=== PATIENT | male | born 1955 | race Caucasian/White ===

== ENCOUNTER 2016-12-26 16:15 | Inpatient (IN) | payer MEDICARE, OTHER ==
[~2016-12-26] VITALS: Ht 180.3 cm; Wt 90.3 kg
[~2016-12-26 16:15] MED LIST: AMBI10TA PO; AMLO5TAB22 PO; CLON.1 PO; DRIS50002 PO; FERR324T4 PO; FOLI1 PO; FURO1TAB93 PO; GLUC1VIA2 SQ; HYDR-3129 PO; LACT20SO4 PO; LEVEMIR SQ; LOPR100T PO; MORP1INJ45 PO; ONDA4TAB7 PO; TAMS0.4C4 PO; TRAZ50TA4 PO
[2016-12-26] MEDS ORDERED: SODIUM CHLORIDE 0.9% FLUSH 10 ML FLUSH IV FLUSH PRN ×2 (19:15→22:00)
[2016-12-26] MEDS ORDERED: MORP1TAB24 PO (19:18)
[2016-12-26] MEDS ORDERED: LEVEMIR SQ (19:19)
[2016-12-26 19:20] VITALS: BP 162/101; PULSE 117; RESP 26; TEMP 98; O2SAT 99
[2016-12-26] MEDS ORDERED: ZOFR4TAB PO (19:20)
[2016-12-26 19:22] VITALS: O2SAT 98
--- NOTE | 2016-12-26 19:31 | PD ---
HPI Chief Complaint: Abdominal Pain Time Seen by Provider: 19:13 Travel History International Travel<30 days: No Contact w/Intl Traveler<30days: No Traveled to known affect area: No History of Present Illness HPI The patient is a 61-year-old male that came in because of abdominal pain, abdominal swelling and shortness of breath for 4 days. The patient has a history of atrial fibrillation, anemia, hypertension, diabetes, seizure disorder , renal insufficiency. He states he has not had any alcohol drink and 2 years, he used to be an alcoholic. He has Medicare and the patient of Dr. Ahmet Davila. He denies any fever although he thinks he might have some fever at home. He denies any nausea or vomiting. He continues to smoke one third pack a day. He denies any cough or chest pain. He is not on any anticoagulants. The patient is poorly compliant on his medications, the only medication he took today was his pain pill. PFSH Past Medical History Arthritis: No Asthma: No Autoimmune Disease: No Blood Disorders: No Anxiety: No Depression: No Heart Rhythm Problems: Yes Cancer: No Cardiovascular Problems: Yes ("IRREGULAR RHYTHM") High Cholesterol: No Chemotherapy: No Chest Pain: No Congestive Heart Failure: No COPD: No Cerebrovascular Accident: No Diabetes: Yes (INSULIN DEPENDENT) Patient Takes Glucophage: No Diminished Hearing: No Endocrine: Yes Gastrointestinal Disorders: Yes GERD: No Genitourinary: Yes (Kidney failure) Hiatal Hernia: No Hypertension: Yes Immune Disorder: No Kidney Stones: No Musculoskeletal: Yes Neurologic: No Psychiatric: No Reproductive: No Respiratory: Yes (COPD) Migraines: No Radiation Therapy: No Renal Failure: Yes Seizures: Yes Sickle Cell Disease: No Sleep Apnea: No Thyroid Disease: No Ulcer: No Tetanus Vaccination: Unknown Influenza Vaccination: Yes Past Surgical History Abdominal Surgery: No AICD: No Arteriovenous Shunt: No Body Medical Devices: plates and screws in arm, elbow, plate in head Cardiac Surgery: No Ear Surgery: No Endocrine Surgery: No Eye Surgery: Yes (RIGHT EYE SPRING WIRE) Genitourinary Surgery: No Gynecologic Surgery: No Insulin Pump: No Joint Replacement: No Oral Surgery: No Pacemaker: No Thoracic Surgery: No Tonsillectomy: Yes Other Surgery: Yes (PLATE ON RIGHT SIDE OF HEAD/BACK SX) Social History Alcohol Use: No Tobacco Use: Yes (1/2 PACK DAY) Substance Use: No Allergies-Medications (Allergen,Severity, Reaction): Coded Allergies: Penicillin (Verified Allergy, Unknown, CANT BREATH, 12/26/16) MRI PRECAUTION (Verified Adverse Reaction, Unknown, EYELID SPRING DR MOELLER 04/13/15 LRS, 12/26/16) Reported Meds & Prescriptions Reported Meds & Active Scripts Active Reported Hydrochlorothiazide 25 Mg Tab 25 Mg PO DAILY Lisinopril 20 Mg Tab 20 Mg PO DAILY Carvedilol 12.5 Mg Tab 12.5 Mg PO Q12HR Trazodone (Trazodone HCl) 50 Mg Tab 50 Mg PO HS PRN Clonidine (Clonidine HCl) 0.1 Mg Tab 0.1 Mg PO Q6HR PRN Amlodipine (Amlodipine Besylate) 5 Mg Tab 5 Mg PO DAILY Drisdol (Ergocalciferol) 50,000 Unit Cap 50,000 Units PO Q7D ON FRIDAYS Lortab (Hydrocodone-Acetaminophen) 10-325 Mg Tab 1 Tab PO Q6H PRN Furosemide 40 Mg Tab 40 Mg PO BID Morphine IR (Morphine Sulfate) 15 Mg Tab 15 Mg PO Q4H Zofran (Ondansetron HCl) 4 Mg Tab 4 Mg PO Q6HR PRN Levemir Inj (Insulin Detemir) 1,000 unit/ 10 ML Vial 10 Units SQ HS Do not mix with any other Insulin. Review of Systems Except as stated in HPI: all other systems reviewed are Neg Physical Exam Narrative GENERAL: The patient is alert, oriented 3 and slight respiratory distress. He also has an moderate abdominal distress. His vital signs show pulse of 117, respirations 28 with oximetry 99% on room air and blood pressure 162/101. SKIN: Warm and dry. HEAD: Atraumatic. Normocephalic. EYES: Pupils equal and round. No scleral icterus. No injection or drainage. ENT: No nasal bleeding or discharge. Mucous membranes pink and moist. NECK: Trachea midline. No JVD. The patient flexes neck fully without any hesitation. CARDIOVASCULAR: Regular rate and rhythm. No murmur appreciated. RESPIRATORY: No accessory muscle use. Posterior rhonchi are heard on the right. Breath sounds equal bilaterally. GASTROINTESTINAL: Abdomen soft, with diffuse tenderness all 4 quadrants, distended. Hepatic and splenic margins not palpable. No guarding or rebound is present. MUSCULOSKELETAL: No obvious deformities. No clubbing. No cyanosis. No edema. NEUROLOGICAL: Awake and alert. No obvious cranial nerve deficits. Motor grossly within normal limits. Normal speech. PSYCHIATRIC: Appropriate mood and affect; insight and judgment normal. Data Data Last Documented VS Vital Signs Date Time Temp Pulse Resp B/P Pulse Ox O2 Delivery O2 Flow Rate FiO2 12/26/16 21:11 85 18 142/86 92 Nasal Cannula 2 12/26/16 19:20 98.0 Orders Complete Blood Count With Diff (12/26/16 19:13) Comprehensive Metabolic Panel (12/26/16 19:13) Lipase (12/26/16 19:13) Urinalysis - C+S If Indicated (12/26/16 19:13) Iv Access Insert/Monitor (12/26/16 19:13) Ecg Monitoring (12/26/16 19:13) Oximetry (12/26/16 19:13) Sodium Chloride 0.9% Flush (Ns Flush) (12/26/16 19:15) Chest, Pa & Lat (12/26/16 19:13) Troponin I (12/26/16 19:13) B-Type Natriuretic Peptide (12/26/16 19:13) Ct Abd/Pel W/O Iv Contrast (12/26/16 19:23) Electrocardiogram (12/26/16 ) Urine Culture (12/26/16 19:25) Lactic Acid Sepsis Protocol (12/26/16 20:08) Blood Culture (12/26/16 20:08) Arterial Blood Gas (Abg) (12/26/16 ) Furosemide Inj (Lasix Inj) (12/26/16 20:45) Diltiazem Inj (Cardizem Inj) (12/26/16 21:00) Admit Order (Ed Use Only) (12/26/16 21:12) Labs Laboratory Tests Test 12/26/16 12/26/16 12/26/16 19:25 19:30 20:25 Urine Color YELLOW Urine Turbidity CLEAR Urine pH 6.0 Urine Specific [place] 1.013 Urine Protein 100 mg/dL Urine Glucose (UA) 70 mg/dL Urine Ketones NEG mg/dL Urine Occult Blood TRACE Urine Nitrite NEG Urine Bilirubin NEG Urine Urobilinogen LESS THAN 2.0 MG/DL Urine Leukocyte Esterase LARGE Urine RBC 7 /hpf Urine WBC 99 /hpf Urine Bacteria RARE /hpf Urine Yeast (Budding) FEW Microscopic Urinalysis Comment CULTURE INDICATED B-Type Natriuretic Peptide 979 PG/ML White Blood Count 5.7 TH/MM3 Red Blood Count 3.58 MIL/MM3 Hemoglobin 10.8 GM/DL Hematocrit 33.2 % Mean Corpuscular Volume 92.8 FL Mean Corpuscular Hemoglobin 30.2 PG Mean Corpuscular Hemoglobin 32.5 % Concent Red Cell Distribution Width 15.6 % Platelet Count 62 TH/MM3 Mean Platelet Volume 10.7 FL Neutrophils (%) (Auto) 52.3 % Lymphocytes (%) (Auto) 37.3 % Monocytes (%) (Auto) 7.0 % Eosinophils (%) (Auto) 2.2 % Basophils (%) (Auto) 1.2 % Neutrophils # (Auto) 3.0 TH/MM3 Lymphocytes # (Auto) 2.1 TH/MM3 Monocytes # (Auto) 0.4 TH/MM3 Eosinophils # (Auto) 0.1 TH/MM3 Basophils # (Auto) 0.1 TH/MM3 CBC Comment AUTO DIFF Differential Comment AUTO DIFF CONFIRMED Platelet Estimate LOW Platelet Morphology Comment NORMAL Ovalocytes 1+ Sodium Level 140 MEQ/L Potassium Level 4.5 MEQ/L Chloride Level 114 MEQ/L Carbon Dioxide Level 16.4 MEQ/L Anion Gap 10 MEQ/L Blood Urea Nitrogen 55 MG/DL Creatinine 3.37 MG/DL Estimat Glomerular Filtration 19 ML/MIN Rate Random Glucose 118 MG/DL Calcium Level 7.9 MG/DL Total Bilirubin 0.3 MG/DL Aspartate Amino Transf 24 U/L (AST/SGOT) Alanine Aminotransferase 19 U/L (ALT/SGPT) Alkaline Phosphatase 131 U/L Troponin I LESS THAN 0.02 NG/ML Total Protein 6.3 GM/DL Albumin 2.5 GM/DL Lipase 145 U/L Lactic Acid Level 0.8 mmol/L MDM Medical Decision Making Medical Screen Exam Complete: Yes Emergency Medical Condition: Yes Medical Record Reviewed: Yes Interpretation(s) EKG shows atrial fibrillation with a ventricular rate of 120. Nonspecific ST-T wave changes are present on the EKG. The chest x-ray shows bilateral pleural effusions, right greater than left, probable partial loculation on the right and basilar airspace disease right greater than left. The CT abdomen/pelvis with out IV contrast shows moderate bilateral pleural effusions which is increased since April 2016. Mild ascites and moderate anasarca are noted, both have increased since the prior examination on April 11, 2016. The CBC shows a hemoglobin of 10.8 and hematocrit of 33.2 but is otherwise unremarkable. The urine shows trace occult blood, large leukocyte esterase with 99 white cells and rare bacteria and culture is indicated. The complete metabolic profile shows bicarbonate 16.4, BUN 55, creatinine 3.37, GFR of 19, calcium 7.9, alkaline phosphatase 131 with total protein 6.3 and albumin of 2.5. The lipase is normal. The troponin I is normal. Differential Diagnosis Sepsis, pyelonephritis, renal insufficiency, congestive heart failure, anemia, electrolyte disorder, pneumonia, noncompliance to medications, urinary tract infection Narrative Course The patient fits criteria for sepsis but he is probably not septic. The criteria is because of rapid respirations and heartbeat and this is likely because of congestive heart failure and fluid overload. He does have anasarca and renal insufficiency which is worse than his previous admission. He is also noncompliant and has a urinary tract infection. He also has atrial fibrillation with rapid ventricular response. The patient appears to be fluid overloaded at this time, possibly because of the combination of his noncompliance to medications and his renal insufficiency. Sepsis Criteria SIRS Criteria (2 or more): Heart rate over 90, RR > 20 or PaCO2 < 32 Sepsis Criteria (SIRS+source): Infect source susp/known Physician Communication Physician Communication I discussed the patient with Dr. Uribe's physician chemist assistant, Vanesa and the patient will be admitted to Dr. Uribe. Diagnosis Primary Impression: Renal anasarca Additional Impressions: Noncompliance with medications UTI (urinary tract infection) Atrial fibrillation with rapid ventricular response Bilateral pleural effusion Renal insufficiency Sepsis Admitting Information Admitting Physician Requests: Admit Johnny Dorado MD Dec 26, 2016 19:31
[2016-12-26 19:56] LABS: BACTERIA, URINE RARE /hpf; BLOOD, URINE TRACE (NEG); COMMENT (UR) CULTURE INDICATED; CULTURE IF INDICATED CULTURE INDICATED; GLUCOSE,URINE 70 mg/dL (NEG); KETONE, URINE NEG (NEG); NITRITE,URINE NEG (NEG); URINE COLOR YELLOW (YELLW/STRAW)
[2016-12-26 19:58] LABS: BASOPHIL # 0.1 TH/MM3 (0-0.2); BASOPHIL % 1.2 % (0.0-2.0); EOSINOPHIL # 0.1 TH/MM3 (0-0.4); EOSINOPHIL % 2.2 % (0.0-4.0); HEMATOCRIT 33.2 % (39.0-51.0); LYMPH % 37.3 % (9.0-44.0); LYMPHOCYTE # 2.1 TH/MM3 (1.0-4.8); MEAN CELL VOLUME 92.8 FL (80.0-100.0); MEAN CORPUSCULAR HEMOGLOBIN 30.2 PG (27.0-34.0); MEAN CORPUSCULAR HGB CONC 32.5 % (32.0-36.0); NEUT % 52.3 % (16.0-70.0); PLATELET COUNT 62 TH/MM3 (150-450); RED BLOOD COUNT 3.58 MIL/MM3 (4.50-5.90); RED CELL DISTRIBUTION WIDTH 15.6 % (11.6-17.2); WHITE BLOOD COUNT 5.7 TH/MM3 (4.0-11.0)
[2016-12-26 20:00] LABS: HEMO FLAGS AUTO DIFF
--- NOTE | 2016-12-26 20:12 | RADRPT ---
EXAM DATE/TIME: 12/26/2016 19:39 [facility] COMPARISON: CT ABDOMEN & PELVIS W/O CONTRAST, April 11, 2016, 15:38. INDICATIONS : Diffuse abdominal pain. ORAL CONTRAST: No oral contrast ingested. RADIATION DOSE: 16.75 CTDIvol (mGy) MEDICAL HISTORY : Renal failure, chronic. Diabetes mellitus type 2. Hepatitis C.Hypertension. SURGICAL HISTORY : None. ENCOUNTER: Initial ACUITY: 1 day PAIN SCALE: 10/10 LOCATION: diffuse abdomen TECHNIQUE: Volumetric scanning of the abdomen and pelvis was performed. Using automated exposure control and ad justment of the mA and/or kV according to patient size, radiation dose was kept as low as reasonably achievable to obtain optimal diagnostic quality images. FINDINGS: There are moderate bilateral pleural effusions with compressive atelectasis of both lungs. There is mild ascites. There is diffuse anasarca. Multiple gallstones present without gallbladder wal l thickening similar to prior examination. No bowel obstruction. No free air. Extensive postoperative changes in the spine with multiple mulu paul deformities similar to April 2016. CONCLUSION: 1. Moderate bilateral pleural effusions, increased in size from April 2016. 2. Mild ascites which has developed since prior examination. 3. Moderate anasarca, increased since prior examination. 4. Postoperative changes of spinal fixation with multiple prior compression deformities similar to pr ior exam. Rafael Holman MD on December 26, 2016 at 19:59 Board Certified Radiologist. This report was verified electronically.
[2016-12-26 20:22] LABS: OVALOCYTES 1+ (NORMAL)
--- NOTE | 2016-12-26 20:22 | RADRPT ---
EXAM DATE/TIME: 12/26/2016 19:49 [facility] COMPARISON: CT ABDOMEN & PELVIS W/O CONTRAST, December 26, 2016, 19:39. INDICATIONS : Short of breath. MEDICAL HISTORY : Hypertension. Chronic obstructive pulmonary disease. Seizures. Smoker. SURGICAL HISTORY : T-spine surgery. ENCOUNTER: Initial ACUITY: 2 days PAIN SCORE: 5/10 LOCATION: chest FINDINGS: There are bilateral pleural effusions, larger on the right. Basilar airspace disease, right greater t bynum left No pneumothorax. Heart size upper limits normal. CONCLUSION: Bilateral pleural effusions, right greater left. Probable partial loculation on the right. Basilar ai rspace disease, right greater the left. Rafael Holman MD on December 26, 2016 at 20:19 Board Certified Radiologist. This report was verified electronically.
[2016-12-26 20:23] LABS: PLATELET ESTIMATE SMEAR LOW (NORMAL); PLATELET MORPHOLOGY NORMAL (NORMAL); SCAN/DIFF AUTO DIFF CONFIRMED
[2016-12-26 20:36] LABS: ALKALINE PHOSPHATASE 131 U/L (45-117); ALT (GPT) 19 U/L (12-78); ANION GAP 10 MEQ/L (5-15); AST (GOT) 24 U/L (15-37); BICARBONATE 16.4 MEQ/L (21.0-32.0); BLOOD UREA NITROGEN 55 MG/DL (7-18); CHLORIDE 114 MEQ/L (98-107); GLOMERULAR FILTRATION RATE 19 ML/MIN (>89); SODIUM (NA) 140 MEQ/L (136-145); TOTAL BILIRUBIN ADULT 0.3 MG/DL (0.2-1.0)
[2016-12-26 20:37] LABS: POTASSIUM 4.5 MEQ/L (3.5-5.1)
[2016-12-26] MEDS ORDERED: FUROSEMIDE 100 MG/10 ML VIAL IV PUSH ONE (20:45)
[2016-12-26] MEDS ORDERED: MSIR15 PO (20:45)
[2016-12-26] MEDS ORDERED: FURO40TA PO (20:46)
[2016-12-26] MEDS ORDERED: DRIS50002 PO (20:50)
[2016-12-26] MEDS ORDERED: HYDR-3535 PO (20:50)
[2016-12-26] MEDS ORDERED: AMLO5TAB2 PO (20:50)
[2016-12-26] MEDS ORDERED: CLON0.1T PO (20:50)
[2016-12-26] MEDS ORDERED: TRAZ50TA12 PO (20:50)
[2016-12-26] MEDS ORDERED: HYDR25TA5 PO (20:52)
[2016-12-26] MEDS ORDERED: CARV12.52 PO (20:52)
[2016-12-26] MEDS ORDERED: LISI-515 PO (20:52)
[2016-12-26 21:00] VITALS: BP 181/94; PULSE 150; RESP 18; O2SAT 92
[2016-12-26] MEDS ORDERED: DILTIAZEM HCL 25 MG/5 ML VIAL IV ONE (21:00)
[2016-12-26 21:11] VITALS: BP 142/86; PULSE 85; RESP 18; O2SAT 92
[2016-12-26] MEDS ORDERED: ACETAMINOPHEN 325 MG TAB PO PRN (22:00)
[2016-12-26] MEDS ORDERED: cloNIDine HCL 0.1 MG TAB PO PRN (22:00)
[2016-12-26] MEDS ORDERED: ENOXAPARIN SODIUM 30 MG/0.3 ML SYRINGE SQ SCH (22:00)
[2016-12-26] MEDS ORDERED: NALOXONE HCL 0.4 MG/ML AMP IV PRN (22:00)
[2016-12-26] MEDS ORDERED: MAGNESIUM HYDROXIDE SUSP 30 ML CUP PO PRN (22:00)
[2016-12-26] MEDS ORDERED: SENNOSIDES 8.6 MG TAB PO PRN (22:00)
[2016-12-26] MEDS ORDERED: BISACODYL 10 MG SUPP PR PRN (22:00)
[2016-12-26 22:04] LABS: BLOOD GAS BASE EXCESS -8.5 mmol/L (-2-2); BLOOD GAS CARBOXYHEMOGLOBIN 1.8 % (0-4); BLOOD GAS HCO3 16 mmol/L (22-26); BLOOD GAS METHEMOGLOBIN 0.6 % (0-2); BLOOD GAS O2 HGB SATURATION 87 % (90-100); BLOOD GAS OXYGEN CONTENT 12.9 Vol % (12.0-20.0); BLOOD GAS PCO2 29 mmHg (38-42); BLOOD GAS PO2 55 mmHG (61-120); BLOOD GAS TOTAL HGB 10.5 G/DL (12.0-16.0); TEMP CORR TO 98.6
[2016-12-26 22:05] LABS: CRITICAL VALUE YES; DRAW SITE LT RADIAL; FIO2 21 %; NUMBER OF ARTERIAL PUNCTURES 1; OXYGEN DEVICE ROOM AIR; ULNAR PULSE PRESENT
[2016-12-26 22:06] LABS: STAT YES
[2016-12-26] MEDS ORDERED: ACETAMINOPHEN/HYDROcodone 325 MG/5 MG TAB PO ONE (23:30)
[2016-12-26] MEDS: DOCUSATE SODIUM 100 MG CAP PO SCH (23:39)
[2016-12-27] VITALS (13 sets, daily range): BP systolic 105–162; BP diastolic 76–97; PULSE 62–130; RESP 16–23; TEMP 97.5–97.7; O2SAT 95–100
[2016-12-27] MEDS: traZODone HCL 50 MG TAB PO PRN ×2 (01:17→23:25)
[2016-12-27] MEDS: CIPROFLOXACIN 400 MG PREMIX 200 ML IV SCH ×2 (01:17→23:26)
[2016-12-27] MEDS ORDERED: RESP: ALBUTEROL 2.5 MG/3 ML NEB (PRN) INH (07:45)
[2016-12-27 07:57] LABS: ALT (GPT) 17 U/L (12-78); ANION GAP 10 MEQ/L (5-15); AST (GOT) 11 U/L (15-37); BICARBONATE 19.1 MEQ/L (21.0-32.0); BLOOD UREA NITROGEN 50 MG/DL (7-18); CHLORIDE 113 MEQ/L (98-107); GLOMERULAR FILTRATION RATE 19 ML/MIN (>89); MAGNESIUM 1.8 MG/DL (1.5-2.5); POTASSIUM 3.8 MEQ/L (3.5-5.1); SODIUM (NA) 142 MEQ/L (136-145)
[2016-12-27 07:59] LABS: ALKALINE PHOSPHATASE 118 U/L (45-117); TOTAL BILIRUBIN ADULT 0.3 MG/DL (0.2-1.0)
--- NOTE | 2016-12-27 08:18 | HHI.HP ---
History of Present Illness Service Family medicine Primary Care Physician Ahmet Davila, DO Admission Diagnosis anasarca, atrial fibrillation with RVR, urinary tract infection, sep Diagnoses: History of Present Illness The patient is a 61-year-old male patient followed by Dr. Davila He presented to the ED because of abdominal pain, swelling, and shortness of breath for 4 days. He was unable to stand up. He also reports that he ran out of his medication. The patient has a history of anemia, hypertension, insulin dependent diabetes, seizure disorder, and renal insufficiency. He also has chronic pain and is seen by a pain clinic with a history of steel joyce in back from osteomyelitis. He is found to be in AFIB RVR he denied that he has a history of AFIB. His chest Xray also shows bilateral pleural effusion R>L and probable loculated on Right. His CT of abdomen showed moderate anasarca and mild ascites. He is also found to elevated BUN and creatinine with a GFR 19. His UA appears to positive for UTI and he was started on Cipro culture pending. Per patient not followed by any program evaluator, technical operations manager, or safety and security manager. He states he has not had any alcohol drink and 2 years, he used to be an alcoholic. He continues to smoke one third pack a day. He denies any cough or chest pain. The only medication he took yesterday was his pain pill. Review of Systems Constitutional: COMPLAINS OF: Fatigue, Fever Respiratory: COMPLAINS OF: Shortness of breath, DENIES: Cough, Sputum production Cardiovascular: COMPLAINS OF: Dyspnea on Exertion, Lower Extremity Edema, Orthopnea, DENIES: Chest pain, Palpitations Gastrointestinal: COMPLAINS OF: Abdominal pain, DENIES: Constipation, Diarrhea Genitourinary: DENIES: Urinary frequency, Urinary incontinence, Urgency Musculoskeletal: COMPLAINS OF: Muscle aches, Back pain Psychiatric: DENIES: Anxiety, Confusion Past Family Social History Allergies: Coded Allergies: Penicillin (Verified Allergy, Unknown, CANT BREATH, 12/26/16) MRI PRECAUTION (Verified Adverse Reaction, Unknown, EYELID SPRING DR MOELLER 04/13/15 LRS, 12/26/16) Past Medical History HTN, IDDM, Chronic pain, osteomyelitis, and chronic renal insufficiency Past Surgical History Plates and screws in arm, elbow, plate in head Steel joyce in back. Tonsillectomy Reported Medications Reported Meds & Active Scripts Active Reported Hydrochlorothiazide 25 Mg Tab 25 Mg PO DAILY Lisinopril 20 Mg Tab 20 Mg PO DAILY Carvedilol 12.5 Mg Tab 12.5 Mg PO Q12HR Trazodone (Trazodone HCl) 50 Mg Tab 50 Mg PO HS PRN Clonidine (Clonidine HCl) 0.1 Mg Tab 0.1 Mg PO Q6HR PRN Amlodipine (Amlodipine Besylate) 5 Mg Tab 5 Mg PO DAILY Drisdol (Ergocalciferol) 50,000 Unit Cap 50,000 Units PO Q7D ON FRIDAYS Lortab (Hydrocodone-Acetaminophen) 10-325 Mg Tab 1 Tab PO Q6H PRN Furosemide 40 Mg Tab 40 Mg PO BID Morphine IR (Morphine Sulfate) 15 Mg Tab 15 Mg PO Q4H Zofran (Ondansetron HCl) 4 Mg Tab 4 Mg PO Q6HR PRN Levemir Inj (Insulin Detemir) 1,000 unit/ 10 ML Vial 10 Units SQ HS Do not mix with any other Insulin. Active Ordered Medications Current Medications Medications (Trade) Dose Ordered Sig/Jah Route Start Time Stop Time Status Last Admin (Norvasc) 5 mg DAILY PO 12/27/16 09:00 (Coreg) 12.5 mg Q12HR PO 12/27/16 09:00 (Catapres) 0.1 mg Q6H PRN PO 12/26/16 22:00 (Lasix) 40 mg BID@09,18 PO 12/27/16 09:00 (Hydrodiuril) 25 mg DAILY PO 12/27/16 09:00 (Prinivil) 20 mg DAILY PO 12/27/16 09:00 (Desyrel) 50 mg HS PRN PO 12/26/16 22:00 12/27/16 01:17 (NS Flush) 2 ml UNSCH PRN IV FLUSH 12/26/16 22:00 (NS Flush) 2 ml BID IV FLUSH 12/27/16 09:00 (Tylenol) 650 mg Q4H PRN PO 12/26/16 22:00 (Zofran Inj) 4 mg Q6H PRN IVP 12/26/16 22:00 (Dulcolax Supp) 10 mg DAILY PRN OR 12/26/16 22:00 (Colace) 100 mg Q12H PO 12/26/16 22:00 3/23/17 23:39 (Milk Of Magnesia Liq) 30 ml Q12H PRN PO 12/26/16 22:00 (Senokot) 17.2 mg Q12H PRN PO 12/26/16 22:00 (Lovenox Inj) 30 mg Q24H SQ 12/26/16 22:00 12/26/16 23:39 Naloxone HCl 0.4 mg 0.4 mg UNSCH PRN IV 12/26/16 22:00 (Cipro 400 Mg Premix) 200 ml @ 200 mls/hr Q24H IV 12/27/16 00:00 12/27/16 01:17 Family History Mother and father . Father with heart disease Social History Smokes 6 cigarettes per day Denies ETOH use Lives with and is disabled Physical Exam Vital Signs Vital Signs Date Time Temp Pulse Resp B/P Pulse Ox O2 Delivery O2 Flow Rate FiO2 12/27/16 05:30 111 19 130/80 100 Room Air 12/27/16 02:01 109 21 161/91 100 Nasal Cannula 2 12/27/16 01:06 102 18 123/78 97 Nasal Cannula 2 12/27/16 00:00 97.6 103 18 162/92 95 Nasal Cannula 2 12/26/16 21:11 85 18 142/86 92 Nasal Cannula 2 12/26/16 21:00 150 18 181/94 92 Room Air 12/26/16 19:22 98 Room Air 12/26/16 19:20 98.0 117 26 162/101 99 Physical Exam GENERAL: This is a well-nourished in mild distress SKIN: No rashes, ecchymoses or lesions. Cool and dry. HEAD: Atraumatic. Normocephalic. No temporal or scalp tenderness. EYES: Pupils equal round and reactive. CARDIOVASCULAR: Irregular rate and rhythm. No murmur noted RESPIRATORY: Clear to auscultation. Breath sounds equal bilaterally. No wheezes , rales, or rhonchi. GASTROINTESTINAL: Abdomen round with swelling noted. Tenderness to palpation. MUSCULOSKELETAL: Extremities with 2 + edema. No joint tenderness, effusion, or edema noted. No calf tenderness. Negative Homans sign bilaterally. NEUROLOGICAL: Awake and alert. Normal speech. Laboratory Laboratory Tests Test 12/26/16 12/26/16 12/26/16 12/26/16 19:25 19:30 20:25 21:10 Urine Color YELLOW Urine Turbidity CLEAR Urine pH 6.0 Urine Specific [place] 1.013 Urine Protein 100 Urine Glucose (UA) 70 Urine Ketones NEG Urine Occult Blood TRACE Urine Nitrite NEG Urine Bilirubin NEG Urine Urobilinogen LESS THAN 2.0 Urine Leukocyte Esterase LARGE Urine RBC 7 Urine WBC 99 Urine Bacteria RARE Urine Yeast (Budding) FEW Microscopic Urinalysis Comment CULTURE INDICATED B-Type Natriuretic Peptide 979 White Blood Count 5.7 Red Blood Count 3.58 Hemoglobin 10.8 Hematocrit 33.2 Mean Corpuscular Volume 92.8 Mean Corpuscular Hemoglobin 30.2 Mean Corpuscular Hemoglobin 32.5 Concent Red Cell Distribution Width 15.6 Platelet Count 62 Mean Platelet Volume 10.7 Neutrophils (%) (Auto) 52.3 Lymphocytes (%) (Auto) 37.3 Monocytes (%) (Auto) 7.0 Eosinophils (%) (Auto) 2.2 Basophils (%) (Auto) 1.2 Neutrophils # (Auto) 3.0 Lymphocytes # (Auto) 2.1 Monocytes # (Auto) 0.4 Eosinophils # (Auto) 0.1 Basophils # (Auto) 0.1 CBC Comment AUTO DIFF Differential Comment AUTO DIFF CONFIRMED Platelet Estimate LOW Platelet Morphology Comment NORMAL Ovalocytes 1+ Sodium Level 140 Potassium Level 4.5 Chloride Level 114 Carbon Dioxide Level 16.4 Anion Gap 10 Blood Urea Nitrogen 55 Creatinine 3.37 Estimat Glomerular Filtration 19 Rate Random Glucose 118 Calcium Level 7.9 Total Bilirubin 0.3 Aspartate Amino Transf 24 (AST/SGOT) Alanine Aminotransferase 19 (ALT/SGPT) Alkaline Phosphatase 131 Troponin I LESS THAN 0.02 Total Protein 6.3 Albumin 2.5 Lipase 145 Lactic Acid Level 0.8 Blood Gas Puncture Site LT RADIAL Blood Gas Patient Temperature 98.6 Blood Gas HCO3 16 Blood Gas Base Excess -8.5 Blood Gas Oxygen Saturation 87 Arterial Blood pH 7.36 Arterial Blood Partial 29 Pressure CO2 Arterial Blood Partial 55 Pressure O2 Arterial Blood Oxygen Content 12.9 Arterial Blood 1.8 Carboxyhemoglobin Arterial Blood Methemoglobin 0.6 Blood Gas Hemoglobin 10.5 Oxygen Delivery Device ROOM AIR Blood Gas Inspired Oxygen 21 Date/Time Procedure Status Source Growth 12/26/16 20:25 Aerobic Blood Culture Received Blood Peripheral Pending 12/26/16 20:25 Anaerobic Blood Culture Received Blood Peripheral Pending 12/26/16 19:25 Urine Culture Received Urine Random Urine Pending Result Diagram: 12/26/16192912/26/161929 Imaging Last 24 hours Impressions Abdomen/Pelvis CT 12/26/161922 Signed Impressions: Service Date/Time: December 19:39 - CONCLUSION: 1. Moderate bilateral pleural effusions, increased in size from April 2016. 2. Mild ascites which has developed since prior examination. 3. Moderate anasarca, increased since prior examination. 4. Postoperative changes of spinal fixation with multiple prior compression deformities similar to prior exam. Rafael Holman MD Chest X-Ray 12/26/161912 Signed Impressions: Service Date/Time: , December 26, 2016 19:49 - CONCLUSION: Bilateral pleural effusions, right greater left. Probable partial loculation on the right. Basilar airspace disease, right greater the left. Rafael Holman MD Assessment and Plan Problem List: (1) Atrial fibrillation with rapid ventricular response Status: Acute Plan: Patient was not aware that he had AFIB. HR as high as the 150 when he arrived. Came down nicely with Cardizem bolus. Cardizem gtt ordered. Cardiology consulted and started on eliquis. (2) Acute kidney injury superimposed on CKD Status: Acute Plan: Nephrology consulted. Elevated BUN and creatinine. GFR at 11 (3) Hypertension Status: Chronic Plan: Blood pressure elevated at times at night. Home medications resumed (4) UTI (urinary tract infection) Status: Acute Plan: UA with large amount of leukocytes. Cipro started. (5) Bilateral pleural effusion Status: Acute Plan: Patient lungs are wheezy. Bilateral pleural effusion noted on XRAY R>L also probable loculated on right. Dounebs ordered. Pulmonary consulted for management. (6) Insulin dependent diabetes mellitus Status: Chronic Plan: BS well controlled this AM at 111. BS ordered AC and HS. Home insulin not resumed will monitor (7) Edema Status: Acute Plan: Patient on lasix at home however with SIMONA on hold until seen by nephrology. (8) Abdominal pain Status: Acute Plan: CT with mild ascites and anasarca noted. GI consulted. Assessment and Plan Assessment and plan discussed with Vanesa Duggan Dec 27, 2016 08:18
[2016-12-27] MEDS ORDERED: GLUCAGON 1 MG/ML VIAL OTHER PRN (08:30)
[2016-12-27] MEDS ORDERED: DEXTROSE 50% IN WATER 50 ML VIAL(D50) IV PUSH PRN (08:30)
[2016-12-27] MEDS ORDERED: amLODIPine BESYLATE 5 MG TAB PO SCH (09:00)
[2016-12-27] MEDS ORDERED: FUROSEMIDE 40 MG TAB PO SCH (09:00)
[2016-12-27] MEDS ORDERED: DILTIAZEM INJ 125 MG in SODIUM CHLORIDE 0.9% INJ 100 ML IV SCH (09:00)
[2016-12-27] MEDS: methylPREDNISolone SOD SUCC 125 MG/2 ML VIAL IVP SCH ×3 (09:33→21:56)
[2016-12-27] MEDS: LISINOPRIL 20 MG TAB PO SCH (09:34)
[2016-12-27] MEDS: HYDROCHLOROTHIAZIDE 25 MG TAB PO SCH (09:34)
[2016-12-27] MEDS: SODIUM CHLORIDE 0.9% FLUSH 10 ML FLUSH IV FLUSH SCH ×2 (09:34→21:57)
[2016-12-27] MEDS: DOCUSATE SODIUM 100 MG CAP PO SCH ×3 (09:34→21:57)
[2016-12-27] MEDS: CARVEDILOL 12.5 MG TAB PO SCH ×2 (09:34→21:56)
[2016-12-27] MEDS ORDERED: ACETAMINOPHEN/HYDROcodone 325 MG/10 MG TAB PO ONE (10:30)
[2016-12-27] MEDS: APIXABAN 2.5 MG TABLET PO SCH ×2 (10:34→21:56)
--- NOTE | 2016-12-27 10:43 | PD.CONS ---
HPI History of Present Illness This is a 61 year old who came to the ER for evaluation of abdominal pain, abdominal swelling, and shortness of breath times 4 days. He was found to be in Atrial Fibrillation with RVR and to have bilateral pleural effusions, right greater than left. CT abdomen and pelvis with IV contrast (12/26/16)-----> 1. Moderate bilateral pleural effusions, increased in size from April 2016. 2. Mild ascites which has developed since prior examination. 3. Moderate anasarca, increased since prior examination. 4. Postoperative changes of spinal fixation with multiple prior compression deformities similar to prior exam. WBC was unremarkable. Lipase unremarkable. LFT un remarkable other than very mildly elevated alkaline phosphatase. GI has been consulted for abdominal pain. This began 4 days ago. He complains of bilateral flank pain. He has a constant dull ache, with intermittent sharp shooting pains. This is aggravated by lying flat on his back. Around the same time, he started having some swelling in his abdomen and reports that the rest of his abdomen feels "tight." He denies any nausea, vomiting, heartburn, reflux. He does have alternating constipation with diarrhea. He reports that he will be constipated and then when he finally does go, he will have several loose stool. He denies any blood in his stool. He does not take any laxatives at home. He reports that he had both an EGD/ Colonoscopy up in [place], about 5 years ago. He reports that this was normal. He denies any fever or chills. He reports that he feels like he is just passing small amounts of urine and feels as if he is retaining this. He has his gallbladder and denies any issues with this in the past. (Jenny Galvez) [facility] Past Medical History Anemia HTN DM Seizure disorder Renal Insufficiency Hx Osteomyelitis Atrial Fibrillation Alternating constipation, diarrhea. Past Surgical History ORIF arm ORIF elbow Plate in head Steel joyce in back. Tonsillectomy (Jenny Galvez) Coded Allergies: Penicillin (Verified Allergy, Unknown, CANT BREATH, 12/26/16) MRI PRECAUTION (Verified Adverse Reaction, Unknown, EYELID SPRING DR MOELLER 04/13/15 LRS, 12/26/16) Medications Allergies Coded Allergies Type Severity Reaction Last Updated Verified Penicillin Allergy Unknown CANT BREATH 12/26/16 Yes MRI PRECAUTION Adverse Reaction Unknown EYELID SPRING DR MOELLER 04/13/15 LRS Yes Active Scripts Medications Dose Route/Sig Days Date Category Dose Instructions Hydrochlorothiazide 25 Mg Tab 25 Mg PO DAILY 12/26/16 Reported Lisinopril 20 Mg Tab 20 Mg PO DAILY 12/26/16 Reported Carvedilol 12.5 Mg Tab 12.5 Mg PO Q12HR 12/26/16 Reported Trazodone (Trazodone HCl) 50 Mg Tab 50 Mg PO HS PRN 12/26/16 Reported Clonidine (Clonidine HCl) 0.1 Mg Tab 0.1 Mg PO Q6HR PRN 12/26/16 Reported Amlodipine (Amlodipine Besylate) 5 Mg Tab 5 Mg PO DAILY 12/26/16 Reported Drisdol (Ergocalciferol) 50,000 Unit Cap 50,000 Units PO Q7D ON Fridays12/26/16 Reported Lortab (Hydrocodone-Acetaminophen) 10-325 Mg Tab 1 Tab PO Q6H PRN 12/26/16 Reported Furosemide 40 Mg Tab 40 Mg PO BID 12/26/16 Reported Morphine IR (Morphine Sulfate) 15 Mg Tab 15 Mg PO Q4H 12/26/16 Reported Zofran (Ondansetron HCl) 4 Mg Tab 4 Mg PO Q6HR PRN 12/26/16 Reported Levemir Inj (Insulin Detemir) 1,000 unit/ 10 ML Vial 10 Units SQ HS 12/26/16 Reported Do not mix with any other Insulin. Family History Father had heart disease Social History Smokes 6 cigarettes per day, quit last week Denies ETOH use (Jenny Galvez) Review of Systems Constitutional: COMPLAINS OF: Fatigue, Weight gain, DENIES: Fever, Weight loss , Chills, Change in appetite Respiratory: COMPLAINS OF: Shortness of breath, DENIES: Cough Cardiovascular: COMPLAINS OF: Palpitations Gastrointestinal: COMPLAINS OF: Abdominal pain (bilateral flank pain), Constipation, Diarrhea, DENIES: Nausea, Vomiting, Anorexia, Swelling of Abdomen , Heartburn Musculoskeletal: COMPLAINS OF: Back pain Integumentary: DENIES: Rash Hematologic/lymphatic: COMPLAINS OF: Bruising Neurologic: DENIES: Headache Psychiatric: DENIES: Confusion (Jenny Galvez) GI Exam Vitals I&O Vital Signs Date Time Temp Pulse Resp B/P Pulse Ox O2 Delivery O2 Flow Rate FiO2 12/27/16 10:30 92 17 124/78 100 Room Air 12/27/16 09:30 130 23 126/96 98 Room Air 12/27/16 07:30 120 18 159/76 97 Room Air 12/27/16 05:30 111 19 130/80 100 Room Air 12/27/16 02:01 109 21 161/91 100 Nasal Cannula 2 12/27/16 01:06 102 18 123/78 97 Nasal Cannula 2 12/27/16 00:00 97.6 103 18 162/92 95 Nasal Cannula 2 12/26/16 21:11 85 18 142/86 92 Nasal Cannula 2 12/26/16 21:00 150 18 181/94 92 Room Air 12/26/16 19:22 98 Room Air 12/26/16 19:20 98.0 117 26 162/101 99 Imaging Last Impressions Abdomen/Pelvis CT 12/26/161922 Signed Impressions: Service Date/Time: December 19:39 - CONCLUSION: 1. Moderate bilateral pleural effusions, increased in size from April 2016. 2. Mild ascites which has developed since prior examination. 3. Moderate anasarca, increased since prior examination. 4. Postoperative changes of spinal fixation with multiple prior compression deformities similar to prior exam. Rafael Holman MD Chest X-Ray 12/26/161912 Signed Impressions: Service Date/Time: December 19:49 - CONCLUSION: Bilateral pleural effusions, right greater left. Probable partial loculation on the right. Basilar airspace disease, right greater the left. Rafael Holman MD Laboratory Test 12/26/16 12/26/16 12/26/16 12/26/16 19:25 19:30 20:25 21:10 Urine Color YELLOW Urine Turbidity CLEAR Urine pH 6.0 Urine Specific [place] 1.013 Urine Protein 100 mg/dL Urine Glucose (UA) 70 mg/dL Urine Ketones NEG mg/dL Urine Occult Blood TRACE Urine Nitrite NEG Urine Bilirubin NEG Urine Urobilinogen LESS THAN 2.0 MG/DL Urine Leukocyte Esterase LARGE Urine RBC 7 /hpf Urine WBC 99 /hpf Urine Bacteria RARE /hpf Urine Yeast (Budding) FEW Microscopic Urinalysis Comment CULTURE INDICATED B-Type Natriuretic Peptide 979 PG/ML White Blood Count 5.7 TH/MM3 Red Blood Count 3.58 MIL/MM3 Hemoglobin 10.8 GM/DL Hematocrit 33.2 % Mean Corpuscular Volume 92.8 FL Mean Corpuscular Hemoglobin 30.2 PG Mean Corpuscular Hemoglobin 32.5 % Concent Red Cell Distribution Width 15.6 % Platelet Count 62 TH/MM3 Mean Platelet Volume 10.7 FL Neutrophils (%) (Auto) 52.3 % Lymphocytes (%) (Auto) 37.3 % Monocytes (%) (Auto) 7.0 % Eosinophils (%) (Auto) 2.2 % Basophils (%) (Auto) 1.2 % Neutrophils # (Auto) 3.0 TH/MM3 Lymphocytes # (Auto) 2.1 TH/MM3 Monocytes # (Auto) 0.4 TH/MM3 Eosinophils # (Auto) 0.1 TH/MM3 Basophils # (Auto) 0.1 TH/MM3 CBC Comment AUTO DIFF Differential Comment AUTO DIFF CONFIRMED Platelet Estimate LOW Platelet Morphology Comment NORMAL Ovalocytes 1+ Sodium Level 140 MEQ/L Potassium Level 4.5 MEQ/L Chloride Level 114 MEQ/L Carbon Dioxide Level 16.4 MEQ/L Anion Gap 10 MEQ/L Blood Urea Nitrogen 55 MG/DL Creatinine 3.37 MG/DL Estimat Glomerular Filtration 19 ML/MIN Rate Random Glucose 118 MG/DL Calcium Level 7.9 MG/DL Total Bilirubin 0.3 MG/DL Aspartate Amino Transf 24 U/L (AST/SGOT) Alanine Aminotransferase 19 U/L (ALT/SGPT) Alkaline Phosphatase 131 U/L Troponin I LESS THAN 0.02 NG/ML Total Protein 6.3 GM/DL Albumin 2.5 GM/DL Lipase 145 U/L Lactic Acid Level 0.8 mmol/L Blood Gas Puncture Site LT RADIAL Blood Gas Patient Temperature 98.6 Blood Gas HCO3 16 mmol/L Blood Gas Base Excess -8.5 mmol/L Blood Gas Oxygen Saturation 87 % Arterial Blood pH 7.36 Arterial Blood Partial 29 mmHg Pressure CO2 Arterial Blood Partial 55 mmHG Pressure O2 Arterial Blood Oxygen Content 12.9 Vol % Arterial Blood 1.8 % Carboxyhemoglobin Arterial Blood Methemoglobin 0.6 % Blood Gas Hemoglobin 10.5 G/DL Oxygen Delivery Device ROOM AIR Blood Gas Inspired Oxygen 21 % Test 12/27/16 06:15 Sodium Level 142 MEQ/L Potassium Level 3.8 MEQ/L Chloride Level 113 MEQ/L Carbon Dioxide Level 19.1 MEQ/L Anion Gap 10 MEQ/L Blood Urea Nitrogen 50 MG/DL Creatinine 3.30 MG/DL Estimat Glomerular Filtration 19 ML/MIN Rate Random Glucose 117 MG/DL Calcium Level 8.2 MG/DL Magnesium Level 1.8 MG/DL Total Bilirubin 0.3 MG/DL Aspartate Amino Transf 11 U/L (AST/SGOT) Alanine Aminotransferase 17 U/L (ALT/SGPT) Alkaline Phosphatase 118 U/L B-Type Natriuretic Peptide 1041 PG/ML Total Protein 6.1 GM/DL Albumin 2.4 GM/DL Lipase 108 U/L Date/Time Procedure Status Source Growth 12/26/16 20:25 Aerobic Blood Culture Received Blood Peripheral Pending 12/26/16 20:25 Anaerobic Blood Culture Received Blood Peripheral Pending 12/26/16 19:25 Urine Culture Received Urine Random Urine Pending Physical Examination HEENT: Normocephalic; atraumatic; no jaundice CHEST: CTA CARDIAC: Irregular, 117. ABDOMEN: Soft, nondistended, ,mild tenderness, worse bilateral flank area; no hepatosplenomegaly; bowel sounds are present in all four quadrants. EXTREMITIES: No clubbing, cyanosis, or edema. SKIN: Normal; no rash; no jaundice. COUNTER HOP: No focal deficits; alert and oriented times three. (Jenny GalvezP) Assessment and Plan Plan ASSESSMENT: - Abdominal pain, this seems to be more bilateral flank pain. He c/o 4 day history of bilateral flank pain. This is aggravated by lying flat on back, movement, and not being able to fully empty his bladder. CT abdomen and pelvis with IV contrast (12/26/16)-----> 1. Moderate bilateral pleural effusions, increased in size from April 2016. 2. Mild ascites which has developed since prior examination. 3. Moderate anasarca, increased since prior examination. 4. Postoperative changes of spinal fixation with multiple prior compression deformities similar to prior exam. He reports that he had a normal EGD/ Colonoscopy in [place] about 5 years ago. The only associated GI symptom is alternating constipation and diarrhea, for which he has had for many years and swelling in abdomen. ? etiology. - Flank pain, difficulty urinating (states he feels like he is not emptying his bladder). Recommend post void bladder scan. - Constipation with alternating diarrhea. Long hx. States he is constipated and when he finally moves his bowels, he will have several loose stools. - Acute on chronic kidney injury. It appears his baseline is in the 2.50-2.90 range and currently running 3.30. Dr. Castillo consulted. - Ascites. Small amount on CT. - Atrial Fibrillation with RVR. Rate now 117. Coreg, Cardizem. Eliquis. Cardiology consulted. - Pleural effusions. per primary - HTN, DM, Chronic pain per primary PLAN: - Heart healthy diet as tolerated - Post void bladder scan - Miralax 17 gram po daily - Would hold on diuretics for now, given his SMIONA, defer to renal - Cardiology consulted - Renal consulted - Pulmonary consulted - Supportive care - Further recommendations to follow based on results of above - Pt seen and examined by Dr. Peterson and myself and this note is written on her behalf (Jenny Galvez) Physician Comments seen, examined agree with above history of hep c-never treated we will send hep c viral load states he had similar symptoms before and was secondary kidney failure (Fidelina Peterson MD) Jenny Galvez Dec 27, 2016 10:43 Fidelina Peterson MD Dec 27, 2016 17:41
[2016-12-27] MEDS: POLYETHYLENE GLYCOL 17 GM PKG PO SCH (11:30)
[2016-12-27 12:11] LABS: AUTOMATED NEUTROPHIL # 2.7 TH/MM3 (1.8-7.7); BASOPHIL # 0.1 TH/MM3 (0-0.2); BASOPHIL % 1.4 % (0.0-2.0); EOSINOPHIL # 0.1 TH/MM3 (0-0.4); EOSINOPHIL % 1.8 % (0.0-4.0); HEMATOCRIT 29.9 % (39.0-51.0); LYMPH % 20.9 % (9.0-44.0); LYMPHOCYTE # 0.8 TH/MM3 (1.0-4.8); MEAN CELL VOLUME 91.3 FL (80.0-100.0); MEAN CORPUSCULAR HEMOGLOBIN 29.1 PG (27.0-34.0); MEAN CORPUSCULAR HGB CONC 31.8 % (32.0-36.0); MONO % 2.9 % (0.0-8.0); PLATELET COUNT 81 TH/MM3 (150-450); RED BLOOD COUNT 3.27 MIL/MM3 (4.50-5.90); RED CELL DISTRIBUTION WIDTH 14.9 % (11.6-17.2); WHITE BLOOD COUNT 3.7 TH/MM3 (4.0-11.0)
[2016-12-27 12:12] LABS: HEMO FLAGS AUTO DIFF
[2016-12-27] MEDS: INSULIN ASPART SUPPLEMENTAL SCALE SQ SCH ×3 (12:41→21:00)
--- NOTE | 2016-12-27 12:48 | MB ---
cc: JOSE SCHWARTZ DATE OF CONSULTATION 12/27/2016 REASON FOR CONSULTATION Mr. Painting is a 61 year-old white male of patient of Dr. Davila with no previous cardiac history. He has developed lower extremity erythema, dyspnea and abdominal pain over the last four days. He states he ran out of his medication. He has a history of multiple medical problems including renal insufficiency, spinal osteomyelitis, diabetes mellitus and hypertension. He has chronic back pain. He is wheelchair bound. He was found to be in atrial fibrillation. He has no previous history of atrial fibrillation. He is currently feeling better with diuresis. PAST MEDICAL HISTORY Positive for: 1. Hypertension 2. Insulin dependent diabetes mellitus 3. Chronic back pain 4. History of osteomyelitis 5. Chronic renal insufficiency 6. History of multiple upper extremity surgeries. 7. Back surgery 8. Tonsillectomy MEDICATIONS Include: 1. Hydrochlorothiazide 25 mg daily 2. Lisinopril 20 mg daily 3. Carvedilol 12.5 mg twice a day 4. Trazodone 5. Clonidine 6. Amlodipine 5 mg daily 7. Drisdol 8. Lortab 9. Furosemide 40 mg twice a day 10. Morphine 11. Zofran 12. Levemir 13. Insulin ALLERGIES PENICILLIN SOCIAL HISTORY The patient states he quit smoking one week ago. He quit drinking alcohol several years ago. He lives in [facility] [place] [facility] [place]. [facility] in a [facility] in the past. FAMILY HISTORY Negative for heart disease. REVIEW OF SYSTEMS Otherwise negative PHYSICAL EXAM Blood pressure 126/90, pulse 76 and irregular. HEAD, EYES, EARS, NOSE, AND THROAT: Patient has poor dentition. 2+carotid upstrokes. No bruits. LUNGS: Clear. HEART: Irregular irregular with no murmur, gallop, or rub. ABDOMEN: Soft, no bruits. EXTREMITIES: Without 2+ pitting edema. 1+ distal pulses. NEUROLOGIC: Grossly symmetrical. The patient is alert and oriented. EKG is reviewed and showed atrial fibrillation with rapid ventricular response, nonspecific STT changes. LABS Hemoglobin 10.8, potassium 3.8, creatinine 3.3, troponin less than 0.02, BNP 979 and 1041. DIAGNOSIS 1. Atrial fibrillation with rapid ventricular response 2. Acute exacerbation of chronic kidney disease 3. Anasarca 4. Hypertension 5. Bilateral pleural effusions 6. Insulin dependent diabetes mellitus 7. Abdominal pain DISPOSITION Mr. Painting presented with anasarca and atrial fibrillation with rapid ventricular response. We will continue diuresis closely monitoring his renal function. We will continue IV Diltiazem for rate control which will be eventually switched to p.o. Diltiazem. We will also continue Carvedilol and Lisinopril. We will continue anticoagulation with low dose Eliquis for his atrial fibrillation. We will obtain an echocardiogram to evaluate his left ventricular function. I will follow him for cardiology during his hospitalization. MD MARLENI Carrasco/SAVANAH /11:55 AM /12:34 PM MTDKatie
[2016-12-27 13:01] LABS: PLATELET ESTIMATE SMEAR LOW (NORMAL); PLATELET MORPHOLOGY NORMAL (NORMAL); SCAN/DIFF AUTO DIFF CONFIRMED
[2016-12-27] MEDS: ACETAMINOPHEN/HYDROcodone 325 MG/10 MG TAB PO PRN ×2 (16:40→22:09)
[2016-12-27 20:43] LABS: APTT (PATIENT) 27.1 SEC (24.3-30.1); INTERNATIONAL NORMALIZED RATIO 1.2 RATIO; PROTHROMBIN TIME - PATIENT 12.8 SEC (9.8-11.6)
[2016-12-28] VITALS (7 sets, daily range): BP systolic 152–165; BP diastolic 82–101; PULSE 65–114; RESP 16–22; TEMP 97.4–98.1; O2SAT 95–98
--- NOTE | 2016-12-28 00:24 | RADRPT ---
EXAM DATE/TIME: 12/27/2016 22:50 [place] COMPARISON: No previous studies available for comparison. INDICATIONS : Pleural effusion. MEDICAL HISTORY : Renal failure, chronic. Hypertension. Chronic obstructive pulmonary disease. Head trauma. Irregular h eartbeat. Seizures. Diabetes. Hepatitis C. Blood transfusion.SURGICAL HISTORY : Tonsillectomy. Plate on right side of skull. Back surgery. Left arm surgery. ENCOUNTER: Initial ACUITY: 1 day PAIN SCORE: 8/10 LOCATION: Right chest MEASUREMENTS: SKIN TO PARIETAL PLEURA: 2.9 cm SKIN TO MAX SAFE DEPTH: 5.0 cm ESTIMATED FLUID VOLUME: 755 cc FLUID COMPOSITION: simple FINDINGS: Pleural effusion as above. A jordin was placed on the skin surface superficial to the pleural fluid col lection. CONCLUSION: Large right pleural effusion. Chaka Santoyo Jr., MD on December 28, 2016 at 0:22 Board Certified Radiologist. This report was verified electronically.
[2016-12-28] MEDS: methylPREDNISolone SOD SUCC 125 MG/2 ML VIAL IVP SCH ×2 (03:21→10:23)
[2016-12-28] MEDS: RESP: ALBUTEROL 2.5 MG/IPRATROPIUM 0.5 MG NEB (SCH) NEB ×4 (04:10→20:10)
[2016-12-28] MEDS: INSULIN ASPART SUPPLEMENTAL SCALE SQ SCH ×4 (06:19→21:00)
[2016-12-28] MEDS: SODIUM CHLORIDE 0.9% FLUSH 10 ML FLUSH IV FLUSH SCH ×2 (09:00→21:30)
[2016-12-28] MEDS: FUROSEMIDE 20 MG/2 ML VIAL IV PUSH SCH ×2 (10:23→17:36)
[2016-12-28] MEDS: HYDROCHLOROTHIAZIDE 25 MG TAB PO SCH (10:24)
[2016-12-28] MEDS: LISINOPRIL 20 MG TAB PO SCH (10:24)
[2016-12-28] MEDS: POLYETHYLENE GLYCOL 17 GM PKG PO SCH (10:24)
[2016-12-28] MEDS: DOCUSATE SODIUM 100 MG CAP PO SCH ×2 (10:24→21:28)
[2016-12-28] MEDS: CARVEDILOL 12.5 MG TAB PO SCH ×2 (10:24→21:28)
[2016-12-28] MEDS: ACETAMINOPHEN/HYDROcodone 325 MG/10 MG TAB PO PRN ×3 (10:37→23:30)
--- NOTE | 2016-12-28 11:08 | HHI.PR ---
Subjective Remarks Patient seen at bedside. Alert and cooperative. Reports that he is feeling better. Objective Vital Signs Date Time Temp Pulse Resp B/P Pulse Ox O2 Delivery O2 Flow Rate FiO2 12/28/16 10:45 96 12/28/16 08:00 97.7 69 17 154/98 95 12/28/16 05:07 97.4 73 16 152/82 96 12/27/16 23:43 97.5 71 16 143/76 97 12/27/16 20:00 62 12/27/16 19:18 97.7 76 16 156/93 98 12/27/16 16:00 97.6 64 20 140/97 99 12/27/16 11:30 76 16 126/90 100 Room Air I/O 12/27/16 12/27/16 12/27/16 12/28/16 12/28/16 12/28/16 07:00 15:00 23:00 07:00 15:00 23:00 Intake Total 1280 ml 240 ml 240 ml Output Total 250 ml 150 ml 300 ml Balance 1030 ml 90 ml -60 ml Intake Oral 1280 ml 240 ml 240 ml Output Urine Total 250 ml 150 ml 300 ml Bladder Scan Volume Amount 157 ml # Voids 1 # Bowel Movements 0 0 0 Result Diagram: 12/27/16 1136 12/27/16 0615 Imaging Last 48 hours Impressions Chest Ultrasound 12/27/16 0000 Signed Impressions: Service Date/Time: Tuesday, December 27, 2016 22:50 - CONCLUSION: Large right pleural effusion. Chaka Santoyo Jr., MD Abdomen/Pelvis CT 12/26/161922 Signed Impressions: Service Date/Time: December 19:39 - CONCLUSION: 1. Moderate bilateral pleural effusions, increased in size from April 2016. 2. Mild ascites which has developed since prior examination. 3. Moderate anasarca, increased since prior examination. 4. Postoperative changes of spinal fixation with multiple prior compression deformities similar to prior exam. Rafael Holman MD Chest X-Ray 12/26/161912 Signed Impressions: Service Date/Time: December 19:49 - CONCLUSION: Bilateral pleural effusions, right greater left. Probable partial loculation on the right. Basilar airspace disease, right greater the left. Rafael Holman MD Other Results GENERAL: Alert and cooperative SKIN: Warm and dry. HEAD: Normocephalic. EYES: No scleral icterus. No injection or drainage. NECK: Supple, trachea midline. No JVD or lymphadenopathy. CARDIOVASCULAR: Regular rate and rhythm without murmurs, gallops, or rubs. RESPIRATORY: Breath sounds equal bilaterally. No accessory muscle use. GASTROINTESTINAL: Abdomen soft, non-tender, nondistended. MUSCULOSKELETAL: No cyanosis. 1 + edema BACK: Nontender without obvious deformity. No CVA tenderness. Medications and IVs Current Medications Medications (Trade) Dose Ordered Sig/Jah Route Start Time Stop Time Status Last Admin (Coreg) 12.5 mg Q12HR PO 12/27/16 09:00 12/28/16 10:24 (Catapres) 0.1 mg Q6H PRN PO 12/26/16 22:00 (Hydrodiuril) 25 mg DAILY PO 12/27/16 09:00 12/28/16 10:24 (Prinivil) 20 mg DAILY PO 12/27/16 09:00 12/28/16 10:24 (Desyrel) 50 mg HS PRN PO 12/26/16 22:00 12/27/16 23:25 (NS Flush) 2 ml UNSCH PRN IV FLUSH 12/26/16 22:00 (NS Flush) 2 ml BID IV FLUSH 12/27/16 09:00 12/28/16 09:00 (Tylenol) 650 mg Q4H PRN PO 12/26/16 22:00 (Zofran Inj) 4 mg Q6H PRN IVP 12/26/16 22:00 (Dulcolax Supp) 10 mg DAILY PRN [place] 12/26/16 22:00 (Colace) 100 mg Q12H PO 12/26/16 22:00 12/28/16 10:24 (Milk Of Magnesia Liq) 30 ml Q12H PRN PO 12/26/16 22:00 (Senokot) 17.2 mg Q12H PRN PO 12/26/16 22:00 Naloxone HCl 0.4 mg 0.4 mg UNSCH PRN IV 12/26/16 22:00 (Cipro 400 Mg Premix) 200 ml @ 200 mls/hr Q24H IV 12/27/16 00:00 12/27/16 23:26 (SoluMEDROL INJ) 60 mg Q6H IVP 12/27/16 08:00 12/28/16 10:23 (Eliquis) 2.5 mg BID PO 12/27/16 09:00 Hold 12/27/16 21:56 (D50w (Vial) Inj) 25 ml UNSCH PRN IV PUSH 12/27/16 08:30 (Glucagon Inj) 1 mg UNSCH PRN OTHER 12/27/16 08:30 ([place] 10-325 Mg) 1 tab Q4H PRN PO 12/27/16 14:00 12/28/16 10:37 (Miralax) 17 gm DAILY PO 12/27/16 11:30 12/28/16 10:24 (Lasix Inj) 20 mg BID@,18 IV PUSH 12/28/16 09:00 12/28/16 10:23 Assessment and Plan Problem List: (1) Atrial fibrillation with rapid ventricular response Status: Acute Plan: Patient was not aware that he had AFIB. HR as high as the 150 when he arrived. Came down nicely with Cardizem bolus. Cardizem gtt ordered. Cardiology consulted and started on eliquis. Over night patient had 2-3 second pauses. Cardizem gtt discontinued. (2) Acute kidney injury superimposed on CKD Status: Acute Plan: Nephrology consulted. Elevated BUN and creatinine. GFR improved at 19. Lasix ordered BID (3) Hypertension Status: Chronic Plan: Blood pressure elevated at times at night. Home medications resumed (4) UTI (urinary tract infection) Status: Acute Plan: UA with large amount of leukocytes. Cipro started. (5) Bilateral pleural effusion Status: Acute Plan: Patient lungs are wheezy. Bilateral pleural effusion noted on XRAY R>L also probable loculated on right. Dounebs ordered. Pulmonary consulted for management. US showed 755 cc. Eliquis put on hold anticipating a procedure. (6) Insulin dependent diabetes mellitus Status: Chronic Plan: BS well controlled this AM at 111. BS ordered AC and HS. Home insulin not resumed will monitor (7) Edema Status: Acute Plan: Patient on lasix at home however with SIMONA on hold until seen by nephrology. Lasix ordered BID. TEDs ordered. (8) Abdominal pain Status: Acute Plan: CT with mild ascites and anasarca noted. GI consulted and following. Hep viral load ordered. Assessment and Plan Assessment and plan discussed with Vanesa Duggan Dec 28, 2016 11:08
--- NOTE | 2016-12-28 11:11 | EKG ---
Date Performed: 12/26/2016 Time Performed: 20:30:28 PTAGE: 61 years EKG: ATRIAL FIBRILLATION WITH RAPID VENTRICULAR RESPONSE NONSPECIFIC ST & T-WAVE ABNORMALITY ABN ORMAL RHYTHM ECG PREVIOUS TRACING : 04/11/2016 16.18 DOCTOR: Serge Santiago Interpretating Date/Time 12/28/2016 11:07:31
--- NOTE | 2016-12-28 13:34 | MB ---
cc: ROJAS CHAMBERS MD DATE OF CONSULTATION: 12/27/2016 REASON FOR CONSULTATION Chronic kidney disease with elevated BUN and creatinine. HISTORY OF PRESENT ILLNESS This is a 61-year-old male with a past medical history of hypertension, diabetes mellitus, history of chronic kidney disease, chronic back pain, history of osteomyelitis, came to the hospital with complaint of generalized edema, dysuria and rapid ventricular rate. I was called to see the patient because of elevated BUN and creatinine. The patient has a known history of chronic kidney disease. When he was here last year in April he had a creatinine of 2.7-2.96 and now he came with a creatinine of 3.3. The patient has this kidney disease going on for some time and according to him he has never seen any loom winder tender before, but looking back seems like he was seen by Dr. Spencer when was here in April last year but he has not been following with a loom winder tender. The patient noticed that he has gradual worsening of edema and he has some dysuria and he was diagnosed with urinary tract infection and was started on ciprofloxacin. The patient was in a skilled nursing for a long time after he was admitted at [facility] [id number] years ago and he went home [id number] months ago, and he has been following with Dr. Davila and he was told that he has significant kidney disease and this has been going on for some time. The patient denies any history of taking any nonsteroidal antiinflammatory drugs. He has been taking morphine for pain. PAST MEDICAL HISTORY 1. Hypertension. 2. Diabetes mellitus. 3. Chronic back pain. 4. Osteomyelitis. 5. Chronic kidney disease. PAST SURGICAL HISTORY 1. History of multiple arm and elbow surgery. 2. History of back surgery with a steel joyce in place. 3. Tonsillectomy. REVIEW OF SYSTEMS The patient has generalized weakness, feeling tired, has shortness of breath on exertion. There is no history of nausea or vomiting, no abdominal pain. Occasionally has mild cough which is mainly dry. No chest pain, no palpitation, no history of diarrhea. He has some dysuria which is better and sometimes he has difficulty in starting urination. SOCIAL HISTORY The patient is . He has a history of smoking, trying to cut down. He has a past history of heavy alcoholism. FAMILY HISTORY Noncontributory. ALLERGIES PENICILLIN. MEDICATIONS Currently on the following medications. 1. Eliquis 2.5 mg b.i.d. 2. Hydrochlorothiazide 25 mg once a day. 3. Lisinopril 20 mg once a day. 4. MiraLax 17 grams once a day. 5. DuoNeb nebulizer. 6. Colace 100 mg q.12 hours. 7. Coreg 12.5 mg q.12 hours. 8. Ciprofloxacin 400 mg IV q.24 hours. 9. Methylprednisone 60 mg q.6 hours. 10. Diltiazem infusion. 11. Clonidine as needed. 12. He received Furosemide one dose last night. PHYSICAL EXAMINATION GENERAL: The patient is awake, alert. He is not in acute distress. VITAL SIGNS: Last blood pressure 140/97, temperature 97.6, oxygen saturation on room air is 99-100%. HEAD, EYES, EARS, NOSE AND THROAT: Pupils equally reacting to light. Nonicteric sclerae. Conjunctivae pale. NECK: Supple. JVD is not elevated. LUNGS: The patient has bilateral decreased air entry with scattered wheezing. HEART: S1, S2 with regular rhythm. ABDOMEN: Distended, soft lax. There is no tenderness. Bowel sounds positive. EXTREMITIES: He has bilateral 2+ edema. INVESTIGATION WBC count is 3.7, hemoglobin 9.5, platelet count of 81. Sodium 142, potassium 3.8, chloride 113, bicarb 19.1, BUN 50, creatinine 3.3, calcium is 8.2, AST is 11, ALT is 17, total protein is 6.1, albumin is 2.4. INR is 1.1. Urinalysis showing protein of 100, WBC 99. Previously he has an SAM negative and complements normal, ANCA was also negative. IMAGING STUDIES The patient had a CT scan of the abdomen and pelvis done which shows that he has moderate bilateral pleural effusion, mild ascites, moderate anasarca, postoperative changes in the spine. Ultrasound the kidney was done in April last year and it showed both kidneys normal in size and normal appearance. ASSESSMENT AND PLAN 1. Chronic kidney disease with kidney injury. 2. Urinary tract infection. 3. Atrial fibrillation with rapid ventricular rate. 4. Hypertension. 5. Diabetes mellitus. 6. Anemia. 7. Pleural effusion. The patient has proteinuria and most likely has diabetic nephropathy but there is some possibility of acute worsening but he has advanced renal disease. The patient has edema of the legs and has pleural effusion, I will put him on Lasix. Continue the antibiotic, he is on Cipro at present. Follow the urine output and the BUN and creatinine. I did discuss with the patient about the possibility of dialysis in the future. He was told by one of his physicians that he will need dialysis at some point. Thank you for the consultation. Over the weekend, the patient will be followed by Dr. Spivey. MD AIDAN Hazel/PEG /8:03 PM /12:38 PM
--- NOTE | 2016-12-28 14:47 | MB ---
cc: MERLIN FIGUEROA DATE OF CONSULTATION: 12/28/2016 REASON FOR CONSULTATION: Pleural effusions. Chronic obstructive pulmonary disease. PRESENT ILLNESS This is a 61-year-old white male with a history of anemia, hypertension and diabetes as well as seizure disorder has had chronic pain and has had a previous history for osteomyelitis with a steel joyce in his back. The patient presented to the emergency room with shortness of breath and history of atrial fibrillation and renal insufficiency. He has been dyspneic and had some abdominal pain and leg edema and thus was brought to the emergency room. A chest x-ray showed bilateral pleural effusion on the right side with possible loculation. A CT of the abdomen was done which showed Anasarca with mild ascites. The patient had an elevated BUN and creatinine and was suspected to have UTI and has been on Cipro. Following admission he was also placed on 2 liters of oxygen and now his saturation is 92%. He has a cough but does not bring up any sputum and denies fevers, chills, night sweats. PAST MEDICAL HISTORY: Past history has included history of diabetes mellitus Hypertension chronic back pain osteomyelitis chronic kidney disease. He has had plates in his head, elbow and history for a steel joyce in his spine. He had tonsillectomy remotely. MEDICATIONS: Amlodipine 5 mg daily clonidine 0.1 mg q. six Coreg 1-1/2 mg q. 12. Trazodone 50 mg at bedtime. Lisinopril 20 mg daily Hydrochlorothiazide 25 mg a day Calciferol 50,000 units 1 capsule weekly, Lasix 40 mg b.i.d. morphine 15 mg q. six Zofran p.r.n. Levemir injections 10 units subcutaneous at HS. ALLERGIES PENICILLIN HABITS The patient smoked 6-10 cigarettes per day has done so for 35 years, Alcohol use none recently. FAMILY HISTORY Significant for heart disease. REVIEW OF SYSTEMS The patient has had some weight gain. He has leg swelling dizzy attacks, postnasal drip, cough and wheezing, epigastric distress and bloating urinary frequency and flank pains and denies any GI bleed. He has had some leg swelling and joint pain with depression and anxiety. PHYSICAL EXAMINATION IN GENERAL: This averagely built elderly man onset middle-aged white male who is alert and pale, mildly dyspneic at rest. VITAL SIGNS: Blood pressure 140/80, pulse is 110, respirations 24, temperature 97.5. HEAD, EYES, EARS, NOSE, AND THROAT: Head normocephalic. Pupils reactive. Sclerae are injected. Tongue is moist. Throat was clear. NECK: The neck is supple. No bruits or thyroid enlargement. CHEST: Distant breath sounds with wheezes bilaterally prolonged expiration. HEART: The heart sounds irregular S1-S2. No murmur. ABDOMEN: Soft, benign. No masses or organomegaly. EXTREMITIES: Mild varicosities 2+ edema with diminished pulses. Reflexes 1+ with no gross motor deficits. NEUROLOGIC: Cranial nerves grossly intact. RECTUM: Rectal exam is deferred. SKIN: No lesion. IMPRESSION 1. Atrial fibrillation with rapid ventricular response. 2. Bilateral pleural effusions, more on the right. 3. Diabetes mellitus type 2 4. Hypertension 5. UTI 6. Chronic kidney disease 7. Ascites and abdominal pains. PLAN The patient has been started on nebulized DuoNeb solution q.i.d. and O2 at 1/2 liter nasal cannula. Ultrasound examination of the chest will be obtained to evaluate the effusions. Thoracentesis to be planned if necessary. The patient will be continued on diuretic therapy renal profile to be repeated and a nephrology evaluation will be done this week. The patient also needed 2-D echocardiogram and he will get a follow up chest x-ray this week as well. A pulmonary function study will be done when he is clinically stable. Thank you Dr. Davila for this consultation. MD JOSSELIN Mcallister/saturnino /10:59 PM /2:23 PM
[2016-12-28] MEDS: methylPREDNISolone SOD SUCC 40 MG/1 ML VIAL IV SCH ×2 (16:57→21:29)
--- NOTE | 2016-12-28 17:03 | PD.CARD.PN ---
Subjective Subjective Remarks No CP, less SOB, still w significant edema, pauses this AM, off IV dilt Objective Medications Current Medications Medications (Trade) Dose Ordered Sig/Jah Route Start Time Stop Time Status Last Admin (Coreg) 12.5 mg Q12HR PO 12/27/16 09:00 12/28/16 10:24 (Catapres) 0.1 mg Q6H PRN PO 12/26/16 22:00 (Hydrodiuril) 25 mg DAILY PO 12/27/16 09:00 12/28/16 10:24 (Prinivil) 20 mg DAILY PO 12/27/16 09:00 12/28/16 10:24 (Desyrel) 50 mg HS PRN PO 12/26/16 22:00 12/27/16 23:25 (NS Flush) 2 ml UNSCH PRN IV FLUSH 12/26/16 22:00 (NS Flush) 2 ml BID IV FLUSH 12/27/16 09:00 12/28/16 09:00 (Tylenol) 650 mg Q4H PRN PO 12/26/16 22:00 (Zofran Inj) 4 mg Q6H PRN IVP 12/26/16 22:00 (Dulcolax Supp) 10 mg DAILY PRN [place] 12/26/16 22:00 (Colace) 100 mg Q12H PO 12/26/16 22:00 12/28/16 10:24 (Milk Of Magnesia Liq) 30 ml Q12H PRN PO 12/26/16 22:00 (Senokot) 17.2 mg Q12H PRN PO 12/26/16 22:00 Naloxone HCl 0.4 mg 0.4 mg UNSCH PRN IV 12/26/16 22:00 (Cipro 400 Mg Premix) 200 ml @ 200 mls/hr Q24H IV 12/27/16 00:00 12/27/16 23:26 (Eliquis) 2.5 mg BID PO 12/27/16 09:00 Hold 12/27/16 21:56 (D50w (Vial) Inj) 25 ml UNSCH PRN IV PUSH 12/27/16 08:30 (Glucagon Inj) 1 mg UNSCH PRN OTHER 12/27/16 08:30 ([place] 10-325 Mg) 1 tab Q4H PRN PO 12/27/16 14:00 12/28/16 10:37 (Miralax) 17 gm DAILY PO 12/27/16 11:30 12/28/16 10:24 (Lasix Inj) 20 mg BID@09,18 IV PUSH 12/28/16 09:00 12/28/16 10:23 (SoluMEDROL INJ) 40 mg Q8HR IV 12/28/16 14:00 Vital Signs / I&O Vital Signs Date Time Temp Pulse Resp B/P Pulse Ox O2 Delivery O2 Flow Rate FiO2 12/28/16 16:00 97.6 84 19 160/94 95 12/28/16 12:00 98.1 65 19 163/93 95 12/28/16 10:45 96 12/28/16 08:00 97.7 69 17 154/98 95 12/28/16 05:07 97.4 73 16 152/82 96 12/27/16 23:43 97.5 71 16 143/76 97 12/27/16 20:00 62 12/27/16 19:18 97.7 76 16 156/93 98 I/O 12/27/16 12/27/16 12/27/16 12/28/16 12/28/16 12/28/16 07:00 15:00 23:00 07:00 15:00 23:00 Intake Total 1280 ml 240 ml 240 ml Output Total 250 ml 150 ml 300 ml Balance 1030 ml 90 ml -60 ml Intake Oral 1280 ml 240 ml 240 ml Output Urine Total 250 ml 150 ml 300 ml Bladder Scan Volume Amount 157 ml # Voids 1 # Bowel Movements 0 0 0 Physical Exam GENERAL: In NAF SKIN: Warm and dry. HEAD: Normocephalic. EYES: No scleral icterus. No injection or drainage. NECK: Supple, trachea midline. No JVD or lymphadenopathy. CARDIOVASCULAR: Irregular rate and rhythm without murmurs, gallops, or rubs. RESPIRATORY: Breath sounds equal bilaterally. No accessory muscle use. GASTROINTESTINAL: Abdomen soft, non-tender, nondistended. MUSCULOSKELETAL: No cyanosis, bilat LE edema. Laboratory Laboratory Tests Test 12/27/16 19:56 Prothrombin Time 12.8 SEC Prothromb Time International 1.2 RATIO Ratio Activated Partial 27.1 SEC Thromboplast Time Imaging Last Impressions Chest Ultrasound 12/27/16 0000 Signed Impressions: Service Date/Time: Tuesday, December 27, 2016 22:50 - CONCLUSION: Large right pleural effusion. Chaka Santoyo Jr., MD Abdomen/Pelvis CT 12/26/161922 Signed Impressions: Service Date/Time: December 19:39 - CONCLUSION: 1. Moderate bilateral pleural effusions, increased in size from April 2016. 2. Mild ascites which has developed since prior examination. 3. Moderate anasarca, increased since prior examination. 4. Postoperative changes of spinal fixation with multiple prior compression deformities similar to prior exam. Rafael Holman MD Chest X-Ray 12/26/161912 Signed Impressions: Service Date/Time: December 19:49 - CONCLUSION: Bilateral pleural effusions, right greater left. Probable partial loculation on the right. Basilar airspace disease, right greater the left. Rafael Holman MD Assessment and Plan Problem List: (1) Atrial fibrillation with rapid ventricular response (2) Edema (3) Bilateral pleural effusion (4) Hypertension (5) Insulin dependent diabetes mellitus (6) Acute kidney injury superimposed on CKD Assessment and Plan AF rate better controlled, brief pauses this AM. Increase carvedilol, stay off diltiazem. Anticoagulation with Eliquis. BP control. Continue diuresis closely monitoring renal fx. Pulmonary eval in progress, thoracentesis considered. Check echo. Kamar Arthur MD Dec 28, 2016 17:03
--- NOTE | 2016-12-28 18:06 | HHI.NPPN ---
Subjective History of Present Illness 61 year old with A fib/chf Review of Systems General Constitutional: Fatigue Objective Data Data 12/27/16 12/28/16 19:00 07:00 Intake Total 1280 ml 480 ml Output Total 250 ml 450 ml Balance 1030 ml 30 ml Intake Oral 1280 ml 480 ml Output Urine Total 250 ml 450 ml Bladder Scan Volume Amount 157 ml # Voids 1 # Bowel Movements 0 0 Vital Signs Date Time Temp Pulse Resp B/P Pulse Ox O2 Delivery O2 Flow Rate FiO2 12/28/16 16:00 97.6 84 19 160/94 95 12/28/16 12:00 98.1 65 19 163/93 95 12/28/16 10:45 96 12/28/16 08:00 97.7 69 17 154/98 95 12/28/16 05:07 97.4 73 16 152/82 96 12/27/16 23:43 97.5 71 16 143/76 97 12/27/16 20:00 62 12/27/16 19:18 97.7 76 16 156/93 98 -: 12/27/16 1136 12/27/16 0615 Physical Exam General Appearance: Well Developed Neck Neck Exam: Neck Supple Pulmonary Resp Exam: Decreased Bases Cardiology CV Exam: Arrhythmia Gastrointestinal/Abdomen GI Exam: Soft, Non-Tender Extremeties Extremities Exam: Trace Edema Assessment/Plan Problem List: (1) Acute kidney injury superimposed on CKD Plan: Cr still high follow UOP avoid nephrotoxins Check BMP (2) Atrial fibrillation with rapid ventricular response Plan: cardiology following (3) Bilateral pleural effusion (4) Hypertension Derrick Spivey MD Dec 28, 2016 18:06
[2016-12-28] MEDS: traZODone HCL 50 MG TAB PO PRN (23:30)
[2016-12-28] MEDS: CIPROFLOXACIN 400 MG PREMIX 200 ML IV SCH (23:31)
--- NOTE | 2016-12-28 23:51 | HHI.PR ---
Subjective Remarks He has SOB at rest . On O2 3L. US of chest shows a Moderate Right effusion Objective Vital Signs Date Time Temp Pulse Resp B/P Pulse Ox O2 Delivery O2 Flow Rate FiO2 12/28/16 20:12 21 12/28/16 20:00 97.7 114 22 165/101 98 12/28/16 16:00 97.6 84 19 160/94 95 12/28/16 12:00 98.1 65 19 163/93 95 12/28/16 10:45 96 12/28/16 08:15 65 12/28/16 08:00 97.7 69 17 154/98 95 12/28/16 05:07 97.4 73 16 152/82 96 I/O 12/27/16 12/27/16 12/27/16 12/28/16 12/28/16 12/28/16 07:00 15:00 23:00 07:00 15:00 23:00 Intake Total 1280 ml 240 ml 240 ml Output Total 250 ml 150 ml 300 ml Balance 1030 ml 90 ml -60 ml Intake Oral 1280 ml 240 ml 240 ml Output Urine Total 250 ml 150 ml 300 ml Bladder Scan Volume Amount 157 ml # Voids 1 # Bowel Movements 0 0 0 Result Diagram: 12/27/16 1136 12/27/16 0615 Objective Remarks IN GENERAL: This averagely built elderly man onset middle-aged white male who is alert and pale, mildly dyspneic at rest. HEAD, EYES, EARS, NOSE, AND THROAT: Head normocephalic. Pupils reactive. Sclerae are injected. Tongue is moist. Throat was clear. NECK: The neck is supple. No bruits or thyroid enlargement. CHEST: Distant breath sounds at bases with wheezes bilaterally prolonged expiration. HEART: The heart sounds irregular S1-S2. No murmur. ABDOMEN: Soft, benign. No masses or organomegaly. EXTREMITIES: Mild varicosities 2+ edema with diminished pulses. Reflexes 1+ with no gross motor deficits. NEUROLOGIC: Cranial nerves grossly intact. RECTUM: Rectal exam is deferred. SKIN: No lesion. Assessment and Plan Assessment and Plan IMPRESSION 1. Atrial fibrillation with rapid ventricular response. 2. Bilateral pleural effusions, more on the right. 3. Diabetes mellitus type 2 4. Hypertension 5. UTI 6. Chronic kidney disease 7. Ascites and abdominal pains. Plan 1. Will do right thoracentesis. 2. O2 at 2l. 3. Nebs qid , duoneb. 4. Cont Antibiotics 5. Cont Diuretics . 6. PT PTT today 7. Cont Solumedrol 40 mg bid Faith Boone MD Dec 28, 2016 23:51
[2016-12-29] VITALS (8 sets, daily range): BP systolic 123–180; BP diastolic 81–104; PULSE 61–120; RESP 12–21; TEMP 97.2–98.1; O2SAT 94–99
[2016-12-29] MEDS: RESP: ALBUTEROL 2.5 MG/IPRATROPIUM 0.5 MG NEB (SCH) NEB ×4 (03:32→21:00)
[2016-12-29] MEDS: ONDANSETRON HCL 4 MG/2 ML VIAL IVP PRN (06:15)
[2016-12-29] MEDS: INSULIN ASPART SUPPLEMENTAL SCALE SQ SCH ×4 (06:18→21:00)
[2016-12-29] MEDS: SODIUM CHLORIDE 0.9% FLUSH 10 ML FLUSH IV FLUSH SCH ×2 (09:00→21:00)
[2016-12-29] MEDS: POLYETHYLENE GLYCOL 17 GM PKG PO SCH (09:00)
[2016-12-29] MEDS: FUROSEMIDE 20 MG/2 ML VIAL IV PUSH SCH ×2 (09:08→17:51)
[2016-12-29] MEDS: methylPREDNISolone SOD SUCC 40 MG/1 ML VIAL IV SCH ×2 (09:08→21:31)
[2016-12-29] MEDS: LISINOPRIL 20 MG TAB PO SCH (09:09)
[2016-12-29] MEDS: CARVEDILOL 12.5 MG TAB PO SCH ×2 (09:09→21:31)
[2016-12-29] MEDS: HYDROCHLOROTHIAZIDE 25 MG TAB PO SCH (09:09)
--- NOTE | 2016-12-29 11:45 | HHI.PR ---
Subjective Remarks Patient seen at bedside. Alert and cooperative. Reports feeling nauseated. Requesting to get his morphine IR ordered. Objective Vital Signs Date Time Temp Pulse Resp B/P Pulse Ox O2 Delivery O2 Flow Rate FiO2 12/29/16 10:50 97 12/29/16 08:00 98 Room Air 12/29/16 08:00 97.6 92 12 161/93 98 12/29/16 04:52 98.1 120 18 160/104 97 12/29/16 00:00 97.8 112 21 180/90 98 12/28/16 20:12 21 12/28/16 20:00 97.7 114 22 165/101 98 12/28/16 20:00 Room Air 12/28/16 20:00 102 12/28/16 16:00 97.6 84 19 160/94 95 12/28/16 12:00 98.1 65 19 163/93 95 I/O 12/28/16 12/28/16 12/28/16 12/29/16 12/29/16 12/29/16 07:00 15:00 23:00 07:00 15:00 23:00 Intake Total 240 ml 120 ml 200 ml Output Total 300 ml 500 ml Balance -60 ml -380 ml 200 ml Intake Oral 240 ml 120 ml IV Total 200 ml Output Urine Total 300 ml 500 ml # Bowel Movements 0 0 Result Diagram: 12/27/16 1136 12/27/16 0615 Imaging Last 72 hours Impressions Chest Ultrasound 12/27/16 0000 Signed Impressions: Service Date/Time: Tuesday, December 27, 2016 22:50 - CONCLUSION: Large right pleural effusion. Chaka Santoyo Jr., MD Abdomen/Pelvis CT 12/26/161922 Signed Impressions: Service Date/Time: December 19:39 - CONCLUSION: 1. Moderate bilateral pleural effusions, increased in size from April 2016. 2. Mild ascites which has developed since prior examination. 3. Moderate anasarca, increased since prior examination. 4. Postoperative changes of spinal fixation with multiple prior compression deformities similar to prior exam. Rafael Holman MD Chest X-Ray 12/26/161912 Signed Impressions: Service Date/Time: December 19:49 - CONCLUSION: Bilateral pleural effusions, right greater left. Probable partial loculation on the right. Basilar airspace disease, right greater the left. Rafael Holman MD Other Results GENERAL: Alert and oriented. SKIN: Warm and dry. HEAD: Normocephalic. EYES: No scleral icterus. No injection or drainage. NECK: Supple, trachea midline. No JVD or lymphadenopathy. CARDIOVASCULAR: Regular rate and rhythm without murmurs, gallops, or rubs. RESPIRATORY: Breath sounds equal bilaterally. No accessory muscle use. GASTROINTESTINAL: Abdomen soft, non-tender, nondistended. MUSCULOSKELETAL: No cyanosis, or edema. BACK: Nontender without obvious deformity. No CVA tenderness. Medications and IVs Current Medications Medications (Trade) Dose Ordered Sig/Jah Route Start Time Stop Time Status Last Admin (Catapres) 0.1 mg Q6H PRN PO 12/26/16 22:00 (Hydrodiuril) 25 mg DAILY PO 12/27/16 09:00 12/29/16 09:09 (Prinivil) 20 mg DAILY PO 12/27/16 09:00 12/29/16 09:09 (Desyrel) 50 mg HS PRN PO 12/26/16 22:00 12/28/16 23:30 (NS Flush) 2 ml UNSCH PRN IV FLUSH 12/26/16 22:00 (NS Flush) 2 ml BID IV FLUSH 12/27/16 09:00 12/29/16 09:00 (Tylenol) 650 mg Q4H PRN PO 12/26/16 22:00 (Zofran Inj) 4 mg Q6H PRN IVP 12/26/16 22:00 12/29/16 06:15 (Dulcolax Supp) 10 mg DAILY PRN [place] 12/26/16 22:00 (Colace) 100 mg Q12H PO 12/26/16 22:00 12/28/16 21:28 (Milk Of Magnesia Liq) 30 ml Q12H PRN PO 12/26/16 22:00 (Senokot) 17.2 mg Q12H PRN PO 12/26/16 22:00 (Narcan Inj) 0.4 mg UNSCH PRN IV 12/26/16 22:00 (Eliquis) 2.5 mg BID PO 12/27/16 09:00 Hold 12/27/16 21:56 (D50w (Vial) Inj) 25 ml UNSCH PRN IV PUSH 12/27/16 08:30 (Glucagon Inj) 1 mg UNSCH PRN OTHER 12/27/16 08:30 ([place] 10-325 Mg) 1 tab Q4H PRN PO 12/27/16 14:00 12/28/16 23:30 (Miralax) 17 gm DAILY PO 12/27/16 11:30 12/28/16 10:24 (Lasix Inj) 20 mg BID@09,18 IV PUSH 12/28/16 09:00 12/29/16 09:08 (Coreg) 25 mg Q12HR PO 12/28/16 21:00 12/29/16 09:09 (SoluMEDROL INJ) 40 mg BID IV 12/29/16 09:00 12/29/16 09:08 (Cipro) 500 mg Q24H PO 12/30/16 00:00 Assessment and Plan Problem List: (1) Atrial fibrillation with rapid ventricular response Status: Acute Plan: Patient was not aware that he had AFIB. HR as high as the 150 when he arrived. Cardizem gtt discontinued. Rate is controlled at 92. Eliquis is on hold pending thoracentesis. (2) Acute kidney injury superimposed on CKD Status: Acute Plan: Nephrology consulted. Elevated BUN and creatinine. GFR improved at 19. Lasix ordered BID (3) Hypertension Status: Chronic Plan: Blood pressure elevated at times at night. 161/83 Amlodipine resumed and increased. could be related to increase pain. (4) UTI (urinary tract infection) Status: Acute Plan: UA with large amount of leukocytes. On Cipro culture negative. Will discontinue. (5) Bilateral pleural effusion Status: Acute Plan: Pulmonary managing. Patient lungs are wheezy. Bilateral pleural effusion noted on XRAY R>L also probable loculated on right. Dounebs ordered. Pulmonary consulted for management. US showed 755 cc. Eliquis put on hold anticipating a procedure. (6) Insulin dependent diabetes mellitus Status: Chronic Plan: BS elevated as high as 446. BS AC and HS. SS ordered. Could be related to steriods. Diet changed to diabetic diet. Home insulin regimen resumed. (7) Edema Status: Acute Plan: Patient on lasix at home however with SIMONA on hold until seen by nephrology. Lasix ordered BID. TEDs ordered. (8) Abdominal pain Status: Acute Plan: CT with mild ascites and anasarca noted. GI consulted and following. Hep viral load ordered. Assessment and Plan Assessment and plan discussed with Vanesa Duggan Dec 29, 2016 11:45
[2016-12-29 12:05] LABS: AUTOMATED NEUTROPHIL # 4.9 TH/MM3 (1.8-7.7); BASOPHIL % 0.1 % (0.0-2.0); HEMATOCRIT 29.1 % (39.0-51.0); LYMPH % 6.8 % (9.0-44.0); LYMPHOCYTE # 0.4 TH/MM3 (1.0-4.8); MEAN CELL VOLUME 91.6 FL (80.0-100.0); MEAN CORPUSCULAR HEMOGLOBIN 29.1 PG (27.0-34.0); MEAN CORPUSCULAR HGB CONC 31.8 % (32.0-36.0); NEUT % 90.1 % (16.0-70.0); PLATELET COUNT 85 TH/MM3 (150-450); RED BLOOD COUNT 3.17 MIL/MM3 (4.50-5.90); RED CELL DISTRIBUTION WIDTH 14.6 % (11.6-17.2); WHITE BLOOD COUNT 5.5 TH/MM3 (4.0-11.0)
[2016-12-29 12:08] LABS: HEMO FLAGS AUTO DIFF
[2016-12-29 12:40] LABS: BICARBONATE 18.3 MEQ/L (21.0-32.0); POTASSIUM 4.4 MEQ/L (3.5-5.1)
[2016-12-29] MEDS: DOCUSATE SODIUM 100 MG CAP PO SCH ×2 (12:45→21:31)
[2016-12-29 13:52] LABS: PLATELET ESTIMATE SMEAR LOW (NORMAL); PLATELET MORPHOLOGY NORMAL (NORMAL); SCAN/DIFF AUTO DIFF CONFIRMED
[2016-12-29] MEDS: MORPHINE SULFATE 15 MG CONTROLLED RELEASE TAB PO SCH ×2 (14:39→21:32)
--- NOTE | 2016-12-29 14:58 | PD.CARD.PN ---
Subjective Subjective Remarks No CP, SOB last night, edema improving with diuresis Objective Medications Current Medications Medications (Trade) Dose Ordered Sig/Jah Route Start Time Stop Time Status Last Admin (Catapres) 0.1 mg Q6H PRN PO 12/26/16 22:00 (Hydrodiuril) 25 mg DAILY PO 12/27/16 09:00 12/29/16 09:09 (Prinivil) 20 mg DAILY PO 12/27/16 09:00 12/29/16 09:09 (Desyrel) 50 mg HS PRN PO 12/26/16 22:00 12/28/16 23:30 (NS Flush) 2 ml UNSCH PRN IV FLUSH 12/26/16 22:00 (NS Flush) 2 ml BID IV FLUSH 12/27/16 09:00 12/29/16 09:00 (Tylenol) 650 mg Q4H PRN PO 12/26/16 22:00 (Zofran Inj) 4 mg Q6H PRN IVP 12/26/16 22:00 12/29/16 06:15 (Dulcolax Supp) 10 mg DAILY PRN [place] 12/26/16 22:00 (Colace) 100 mg Q12H PO 12/26/16 22:00 12/29/16 12:45 (Milk Of Magnesia Liq) 30 ml Q12H PRN PO 12/26/16 22:00 (Senokot) 17.2 mg Q12H PRN PO 12/26/16 22:00 (Narcan Inj) 0.4 mg UNSCH PRN IV 12/26/16 22:00 (Eliquis) 2.5 mg BID PO 12/27/16 09:00 Hold 12/27/16 21:56 (D50w (Vial) Inj) 25 ml UNSCH PRN IV PUSH 12/27/16 08:30 (Glucagon Inj) 1 mg UNSCH PRN OTHER 12/27/16 08:30 ([place] 10-325 Mg) 1 tab Q4H PRN PO 12/27/16 14:00 12/28/16 23:30 (Miralax) 17 gm DAILY PO 12/27/16 11:30 12/28/16 10:24 (Lasix Inj) 20 mg BID@,18 IV PUSH 12/28/16 09:00 12/29/16 09:08 (Coreg) 25 mg Q12HR PO 12/28/16 21:00 12/29/16 09:09 (SoluMEDROL INJ) 40 mg BID IV 12/29/16 09:00 12/29/16 09:08 (Norvasc) 10 mg DAILY PO 12/29/16 12:00 12/29/16 12:45 (Levemir Inj) 10 units HS SQ 12/29/16 21:00 (Oramorph Sr) 15 mg Q12HR PO 12/29/16 14:00 12/29/16 14:39 Vital Signs / I&O Vital Signs Date Time Temp Pulse Resp B/P Pulse Ox O2 Delivery O2 Flow Rate FiO2 12/29/16 12:00 97.8 96 16 148/82 97 12/29/16 12:00 97 Room Air 12/29/16 10:50 97 12/29/16 08:00 98 Room Air 12/29/16 08:00 110 12/29/16 08:00 97.6 92 12 161/93 98 12/29/16 04:52 98.1 120 18 160/104 97 12/29/16 00:00 97.8 112 21 180/90 98 12/28/16 20:12 21 12/28/16 20:00 97.7 114 22 165/101 98 12/28/16 20:00 Room Air 12/28/16 20:00 102 12/28/16 16:00 97.6 84 19 160/94 95 I/O 12/28/16 12/28/16 12/28/16 12/29/16 12/29/16 12/29/16 07:00 15:00 23:00 07:00 15:00 23:00 Intake Total 240 ml 120 ml 200 ml Output Total 300 ml 500 ml Balance -60 ml -380 ml 200 ml Intake Oral 240 ml 120 ml IV Total 200 ml Output Urine Total 300 ml 500 ml # Bowel Movements 0 0 Physical Exam GENERAL: In NAF SKIN: Warm and dry. HEAD: Normocephalic. EYES: No scleral icterus. No injection or drainage. NECK: Supple, trachea midline. No JVD or lymphadenopathy. CARDIOVASCULAR: Irregular rate and rhythm without murmurs, gallops, or rubs. RESPIRATORY: Breath sounds equal bilaterally. No accessory muscle use. GASTROINTESTINAL: Abdomen soft, non-tender, nondistended. MUSCULOSKELETAL: No cyanosis, bilat LE edema improved. Laboratory Laboratory Tests Test 12/29/16 11:17 White Blood Count 5.5 TH/MM3 Red Blood Count 3.17 MIL/MM3 Hemoglobin 9.2 GM/DL Hematocrit 29.1 % Mean Corpuscular Volume 91.6 FL Mean Corpuscular Hemoglobin 29.1 PG Mean Corpuscular Hemoglobin 31.8 % Concent Red Cell Distribution Width 14.6 % Platelet Count 85 TH/MM3 Mean Platelet Volume 10.8 FL Neutrophils (%) (Auto) 90.1 % Lymphocytes (%) (Auto) 6.8 % Monocytes (%) (Auto) 3.0 % Eosinophils (%) (Auto) 0.0 % Basophils (%) (Auto) 0.1 % Neutrophils # (Auto) 4.9 TH/MM3 Lymphocytes # (Auto) 0.4 TH/MM3 Monocytes # (Auto) 0.2 TH/MM3 Eosinophils # (Auto) 0.0 TH/MM3 Basophils # (Auto) 0.0 TH/MM3 CBC Comment AUTO DIFF Differential Comment AUTO DIFF CONFIRMED Platelet Estimate LOW Platelet Morphology Comment NORMAL Sodium Level 134 MEQ/L Potassium Level 4.4 MEQ/L Chloride Level 105 MEQ/L Carbon Dioxide Level 18.3 MEQ/L Anion Gap 11 MEQ/L Blood Urea Nitrogen 71 MG/DL Creatinine 3.52 MG/DL Estimat Glomerular Filtration 18 ML/MIN Rate Random Glucose 163 MG/DL Calcium Level 8.2 MG/DL Imaging Last Impressions Chest Ultrasound 12/27/16 0000 Signed Impressions: Service Date/Time: Tuesday, December 27, 2016 22:50 - CONCLUSION: Large right pleural effusion. Chaka Santoyo Jr., MD Abdomen/Pelvis CT 12/26/161922 Signed Impressions: Service Date/Time: December 19:39 - CONCLUSION: 1. Moderate bilateral pleural effusions, increased in size from April 2016. 2. Mild ascites which has developed since prior examination. 3. Moderate anasarca, increased since prior examination. 4. Postoperative changes of spinal fixation with multiple prior compression deformities similar to prior exam. Rafael Holman MD Chest X-Ray 12/26/161912 Signed Impressions: Service Date/Time: December 19:49 - CONCLUSION: Bilateral pleural effusions, right greater left. Probable partial loculation on the right. Basilar airspace disease, right greater the left. Rafael Holman MD Assessment and Plan Problem List: (1) Atrial fibrillation with rapid ventricular response (2) Edema (3) Bilateral pleural effusion (4) Hypertension (5) Insulin dependent diabetes mellitus (6) Acute kidney injury superimposed on CKD Assessment and Plan AF rate controlled. Continue carvedilol, stay off diltiazem. Anticoagulation with Eliquis. BP control. Continue diuresis closely monitoring renal fx. Pulmonary eval in progress, thoracentesis considered. Check echo today. Increase activity. Kamar Arthur MD Dec 29, 2016 14:58
--- NOTE | 2016-12-29 17:09 | HHI.NPPN ---
Subjective History of Present Illness 61 year old with A fib/chf Review of Systems General Constitutional: Fatigue Objective Data Data 12/28/16 12/29/16 19:00 07:00 Intake Total 320 ml Output Total 500 ml Balance -180 ml Intake Oral 120 ml IV Total 200 ml Output Urine Total 500 ml # Bowel Movements 0 Vital Signs Date Time Temp Pulse Resp B/P Pulse Ox O2 Delivery O2 Flow Rate FiO2 12/29/16 15:35 94 Oxyhood 21 12/29/16 12:00 97.8 96 16 148/82 97 12/29/16 12:00 97 Room Air 12/29/16 10:50 97 12/29/16 08:00 98 Room Air 12/29/16 08:00 110 12/29/16 08:00 97.6 92 12 161/93 98 12/29/16 04:52 98.1 120 18 160/104 97 12/29/16 00:00 97.8 112 21 180/90 98 12/28/16 20:12 21 12/28/16 20:00 97.7 114 22 165/101 98 12/28/16 20:00 Room Air 12/28/16 20:00 102 -: 12/29/16 1117 12/29/16 1117 Physical Exam General Appearance: Well Developed Neck Neck Exam: Neck Supple Pulmonary Resp Exam: Decreased Bases Cardiology CV Exam: Arrhythmia Gastrointestinal/Abdomen GI Exam: Soft, Non-Tender Extremeties Extremities Exam: Trace Edema Assessment/Plan Problem List: (1) Acute kidney injury superimposed on CKD Plan: Cr still high follow UOP avoid nephrotoxins order US Kidney s/p thoracentesis likely need HD Dr. Castillo to follow Check BMP (2) Atrial fibrillation with rapid ventricular response Plan: cardiology following (3) Bilateral pleural effusion (4) Hypertension Derrick Spivey MD Dec 29, 2016 17:09
--- NOTE | 2016-12-29 17:12 | RADRPT ---
EXAM DATE/TIME: 12/29/2016 16:20 [facility] COMPARISON: CHEST PA & LAT, December 26, 2016, 19:49. CHEST SINGLE AP, May 04, 2016, 9:29. INDICATIONS : Status post thoracentesis. MEDICAL HISTORY : None. SURGICAL HISTORY : None. ENCOUNTER: Initial ACUITY: 1 day PAIN SCORE: 0/10 LOCATION: Bilateral chest FINDINGS: There is bilateral mostly basilar airspace disease or, left greater than right. Right basilar airspac e disease has improved since December 26. Slight increase in left basilar airspace disease. Previous spi ne fixation across the thoracolumbar junction. No pneumothorax. CONCLUSION: 1. Compared with December 26 there is improved right-sided basilar airspace disease and slight worsening of left basilar opacity. No pneumothorax. Rafael Holman MD on December 29, 2016 at 17:07 Board Certified Radiologist. This report was verified electronically.
[2016-12-29 17:51] LABS: PLEURAL FLUID PH 7.5
[2016-12-29] MEDS: ACETAMINOPHEN/HYDROcodone 325 MG/10 MG TAB PO PRN (17:51)
[2016-12-29 18:32] LABS: TOTAL PROTEIN,PLEURAL FLUID 1.5 GM/DL
[2016-12-29 19:07] LABS: PLEURAL FLUID LYMPHS 85 %
[2016-12-29] MEDS: INSULIN DETEMIR 100 UNITS/ML VIAL SQ SCH (21:31)
[2016-12-29] MEDS: traZODone HCL 50 MG TAB PO PRN (21:33)
[2016-12-30] VITALS (9 sets, daily range): BP systolic 118–156; BP diastolic 74–91; PULSE 76–113; RESP 18–22; TEMP 97–98.5; O2SAT 94–98
[2016-12-30] MEDS ORDERED: CIPROFLOXACIN 500 MG TAB PO SCH
[2016-12-30] MEDS: RESP: ALBUTEROL 2.5 MG/IPRATROPIUM 0.5 MG NEB (SCH) NEB ×4 (04:58→22:00)
[2016-12-30] MEDS: INSULIN ASPART SUPPLEMENTAL SCALE SQ SCH ×4 (06:18→20:58)
[2016-12-30 07:19] LABS: AUTOMATED NEUTROPHIL # 3.6 TH/MM3 (1.8-7.7); BASOPHIL % 0.2 % (0.0-2.0); HEMATOCRIT 29.5 % (39.0-51.0); LYMPH % 8.4 % (9.0-44.0); LYMPHOCYTE # 0.3 TH/MM3 (1.0-4.8); MEAN CELL VOLUME 90.2 FL (80.0-100.0); MEAN CORPUSCULAR HEMOGLOBIN 29.1 PG (27.0-34.0); MEAN CORPUSCULAR HGB CONC 32.2 % (32.0-36.0); MONO % 2.1 % (0.0-8.0); NEUT % 89.3 % (16.0-70.0); PLATELET COUNT 89 TH/MM3 (150-450); RED BLOOD COUNT 3.27 MIL/MM3 (4.50-5.90); RED CELL DISTRIBUTION WIDTH 14.3 % (11.6-17.2)
--- NOTE | 2016-12-30 07:20 | HHI.PR ---
Subjective Remarks Patient seen at bedside. Alert and cooperative. Denies any CP or SOB. Happy that PT worked with him yesterday and he stood at bedside Objective Vital Signs Date Time Temp Pulse Resp B/P Pulse Ox O2 Delivery O2 Flow Rate FiO2 12/30/16 04:00 97.3 84 18 135/82 97 12/30/16 00:00 97.4 76 18 118/77 94 12/29/16 21:40 Room Air 12/29/16 20:00 61 12/29/16 20:00 97.2 62 18 123/81 94 12/29/16 16:00 99 Room Air 12/29/16 16:00 97.6 76 18 130/82 99 12/29/16 15:39 20 12/29/16 15:35 94 Oxyhood 21 12/29/16 12:00 97.8 96 16 148/82 97 12/29/16 12:00 97 Room Air 12/29/16 10:50 97 12/29/16 08:00 98 Room Air 12/29/16 08:00 110 12/29/16 08:00 97.6 92 12 161/93 98 I/O 12/29/16 12/29/16 12/29/16 12/30/16 12/30/16 12/30/16 06:59 14:59 22:59 06:59 14:59 22:59 Intake Total 200 ml 360 ml 480 ml 100 ml Output Total 400 ml 500 ml Balance 200 ml 360 ml 80 ml -400 ml Intake Oral 360 ml 480 ml 100 ml IV Total 200 ml Output Urine Total 400 ml 500 ml # Voids 3 # Bowel Movements 0 0 Result Diagram: 12/29/16 1117 12/29/16 1117 Imaging Last 48 hours Impressions Chest X-Ray 12/29/16 0000 Signed Impressions: Service Date/Time: Thursday, December 29, 2016 16:20 - CONCLUSION: 1. Compared with December 26 there is improved right-sided basilar airspace disease and slight worsening of left basilar opacity. No pneumothorax. Rafael Holman MD Procedures Thoracentesis done Other Results GENERAL: Alert and cooperative SKIN: Warm and dry. HEAD: Normocephalic. EYES: No scleral icterus. No injection or drainage. NECK: Supple, trachea midline. No JVD or lymphadenopathy. CARDIOVASCULAR: Regular rate and rhythm without murmurs, gallops, or rubs. RESPIRATORY: Breath sounds equal bilaterally. No accessory muscle use. GASTROINTESTINAL: Abdomen soft, non-tender, nondistended. MUSCULOSKELETAL: No cyanosis, or edema. BACK: Nontender without obvious deformity. No CVA tenderness. Medications and IVs Current Medications Medications (Trade) Dose Ordered Sig/Jah Route Start Time Stop Time Status Last Admin (Catapres) 0.1 mg Q6H PRN PO 12/26/16 22:00 (Hydrodiuril) 25 mg DAILY PO 12/27/16 09:00 12/30/16 08:44 (Prinivil) 20 mg DAILY PO 12/27/16 09:00 12/30/16 08:44 (Desyrel) 50 mg HS PRN PO 12/26/16 22:00 12/29/16 21:33 (NS Flush) 2 ml UNSCH PRN IV FLUSH 12/26/16 22:00 (NS Flush) 2 ml BID IV FLUSH 12/27/16 09:00 12/30/16 08:45 (Tylenol) 650 mg Q4H PRN PO 12/26/16 22:00 (Zofran Inj) 4 mg Q6H PRN IVP 12/26/16 22:00 12/29/16 06:15 (Dulcolax Supp) 10 mg DAILY PRN [place] 12/26/16 22:00 (Colace) 100 mg Q12H PO 12/26/16 22:00 12/30/16 08:44 (Milk Of Magnesia Liq) 30 ml Q12H PRN PO 12/26/16 22:00 (Senokot) 17.2 mg Q12H PRN PO 12/26/16 22:00 (Narcan Inj) 0.4 mg UNSCH PRN IV 12/26/16 22:00 (Eliquis) 2.5 mg BID PO 12/27/16 09:00 Hold 12/27/16 21:56 (D50w (Vial) Inj) 25 ml UNSCH PRN IV PUSH 12/27/16 08:30 (Glucagon Inj) 1 mg UNSCH PRN OTHER 12/27/16 08:30 ([place] 10-325 Mg) 1 tab Q4H PRN PO 12/27/16 14:00 12/29/16 17:51 (Miralax) 17 gm DAILY PO 12/27/16 11:30 12/28/16 10:24 (Lasix Inj) 20 mg BID@09,18 IV PUSH 12/28/16 09:00 12/30/16 08:45 (Coreg) 25 mg Q12HR PO 12/28/16 21:00 12/30/16 08:44 (SoluMEDROL INJ) 40 mg BID IV 12/29/16 09:00 12/30/16 08:44 (Norvasc) 10 mg DAILY PO 12/29/16 12:00 12/30/16 08:44 (Levemir Inj) 10 units HS SQ 12/29/16 21:00 12/29/16 21:31 (Oramorph Sr) 15 mg Q12HR PO 12/29/16 14:00 12/30/16 08:44 Assessment and Plan Problem List: (1) Atrial fibrillation with rapid ventricular response Status: Acute Plan: Patient was not aware that he had AFIB. HR as high as the 150 when he arrived. Cardizem gtt discontinued patient with 2-3 second pauses. Rate in 100. Eliquis resumed s/p thoracentesis (2) Acute kidney injury superimposed on CKD Status: Acute Plan: Nephrology consulted. Elevated BUN and creatinine. GFR improved at 18. Lasix ordered BID. Kidney US ordered. (3) Hypertension Status: Chronic Plan: Continue current treatment. Will monitor (4) UTI (urinary tract infection) Status: Acute Plan: UA with large amount of leukocytes. On Cipro culture negative. Will discontinue. (5) Bilateral pleural effusion Status: Acute Plan: Pulmonary managing. Patient lungs are wheezy. Bilateral pleural effusion noted on XRAY R>L also probable loculated on right. Dounebs ordered. Pulmonary consulted for management. US showed 755 cc. Thoracentesis done. Opacity noted on xray managed per pulmonary (6) Insulin dependent diabetes mellitus Status: Chronic Plan: BS elevated as high as 446. BS AC and HS. SS ordered. Could be related to steriods. Diet changed to diabetic diet. Home insulin regimen resumed. (7) Edema Status: Acute Plan: Lasix ordered BID per nephrology. Edema improved. (8) Abdominal pain Status: Acute Plan: CT with mild ascites and anasarca noted. GI consulted and following. Hep viral load ordered. Assessment and Plan Assessment and plan discussed with Dr. Davila Discharge Planning Discussed rehab with patient and he is not interested in rehab. Plan will be to discharge home with [facility] Vanesa Foss Dec 30, 2016 07:20
[2016-12-30 07:38] LABS: BICARBONATE 20.4 MEQ/L (21.0-32.0); POTASSIUM 4.5 MEQ/L (3.5-5.1)
[2016-12-30 07:42] LABS: HEMO FLAGS AUTO DIFF
[2016-12-30 08:25] LABS: PLATELET ESTIMATE SMEAR LOW (NORMAL); PLATELET MORPHOLOGY NORMAL (NORMAL); SCAN/DIFF AUTO DIFF CONFIRMED
[2016-12-30] MEDS: MORPHINE SULFATE 15 MG CONTROLLED RELEASE TAB PO SCH ×2 (08:44→20:57)
[2016-12-30] MEDS: LISINOPRIL 20 MG TAB PO SCH (08:44)
[2016-12-30] MEDS: CARVEDILOL 12.5 MG TAB PO SCH ×2 (08:44→20:57)
[2016-12-30] MEDS: DOCUSATE SODIUM 100 MG CAP PO SCH ×2 (08:44→20:57)
[2016-12-30] MEDS: HYDROCHLOROTHIAZIDE 25 MG TAB PO SCH (08:44)
[2016-12-30] MEDS: methylPREDNISolone SOD SUCC 40 MG/1 ML VIAL IV SCH ×2 (08:44→20:57)
[2016-12-30] MEDS: SODIUM CHLORIDE 0.9% FLUSH 10 ML FLUSH IV FLUSH SCH ×2 (08:45→21:00)
[2016-12-30] MEDS: POLYETHYLENE GLYCOL 17 GM PKG PO SCH (08:45)
[2016-12-30] MEDS: FUROSEMIDE 20 MG/2 ML VIAL IV PUSH SCH ×2 (08:45→16:36)
[2016-12-30] MEDS: ACETAMINOPHEN/HYDROcodone 325 MG/10 MG TAB PO PRN ×3 (12:44→20:57)
--- NOTE | 2016-12-30 15:06 | RADRPT ---
EXAM DATE/TIME: 12/30/2016 11:07 [facility] COMPARISON: US KIDNEY/RENAL/BLADDER, May 02, 2016, 11:51. INDICATIONS : Increased BUN and Creatinine. MEDICAL HISTORY : Renal failure, chronic. Hypertension. Chronic obstructive pulmonary disease. Head trauma. Irregular h eartbeat. Seizures. Diabetes. Hepatitis C. Blood transfusion. SURGICAL HISTORY : Tonsillectomy. Plate on right side of skull. Back surgery. Left arm surgery. ENCOUNTER: Subsequent ACUITY: 1 day PAIN SCORE: 0/10 LOCATION: Bilateral flank MEASUREMENTS: RIGHT KIDNEY: 10.3 x 5.6 x 5.6 cm LEFT KIDNEY: 7.8 x 3.8 x 4.2 cm FINDINGS: RIGHT KIDNEY: Increased renal echogenicity with no significant thinning. No focal mass lesion, nephrolithiasis or h ydronephrosis LEFT KIDNEY: Increased renal cortical echogenicity. The left kidney is also smaller than the right possibly repres enting some vascular compromise. No focal mass lesion, nephrolithiasis or hydronephrosis BLADDER: Within normal limits given the degree of distension. MISCELLANEOUS: Small amount of free fluid throughout the abdomen. CONCLUSION: 1. Small amount of abdominal ascites. 2. Increased cortical echogenicity of the kidneys bilaterally suggesting some degree of medical renal disease. 3. Asymmetry of the kidney sizes with the right larger than the left. This could represent some vascu lar compromise to the left kidney. Derrick Block MD on December 30, 2016 at 15:03 Board Certified Radiologist. This report was verified electronically.
--- NOTE | 2016-12-30 16:02 | HHI.NPPN ---
Subjective History of Present Illness 61-year-old male with a past medical history of hypertension, diabetes mellitus, history of chronic kidney disease, chronic back pain, history of osteomyelitis, came to the hospital with complaint of generalized edema, dysuria and rapid ventricular rate. I was called to see the patient because of elevated BUN and creatinine. The patient has a known history of chronic kidney disease. When he was here last year in April he had a creatinine of 2.7-2.96 and now he came with a creatinine of 3.3. The patient has this kidney disease going on for some time and according to him he has never seen any string cutter before, but looking back seems like he was seen by Dr. Spencer when was here in April last year but he has not been following with a string cutter. Additional Remarks Patient is alert, no SOB, feeling better. Review of Systems General Constitutional: Fatigue Objective Data Data 12/29/16 12/30/16 19:00 07:00 Intake Total 360 ml 580 ml Output Total 900 ml Balance 360 ml -320 ml Intake Oral 360 ml 580 ml Output Urine Total 900 ml # Voids 3 # Bowel Movements 0 Vital Signs Date Time Temp Pulse Resp B/P Pulse Ox O2 Delivery O2 Flow Rate FiO2 12/30/16 12:00 98.5 94 20 156/87 97 12/30/16 08:00 113 12/30/16 08:00 Room Air 12/30/16 08:00 97.0 106 22 142/91 98 12/30/16 04:58 95 12/30/16 04:00 97.3 84 18 135/82 97 12/30/16 00:00 97.4 76 18 118/77 94 12/29/16 21:40 Room Air 12/29/16 20:00 61 12/29/16 20:00 97.2 62 18 123/81 94 -: 12/30/16 0506 12/30/16 0506 Physical Exam General Appearance: Well Developed, No Acute Distress, Comfortable Eyes Eye Exam: Pupils Equal Neck Neck Exam: Neck Supple Pulmonary Resp Exam: Breath Sounds Equal, No Distress, Rhonchi, Decreased Bases Cardiology CV Exam: Arrhythmia Gastrointestinal/Abdomen GI Exam: Soft, Non-Tender Extremeties Extremities Exam: Moderate Edema, Pitting Edema Neurologic Neuro Exam: Alert, Awake, Oriented Psychiatric Psych Exam: Appropriate Responses Assessment/Plan Assessment Summary: CKD Stage IV Problem List: (1) Acute kidney injury superimposed on CKD Plan: Patient has stage 4 chronic kidney disease. Most likely has Diabetic nephropathy. Has smaller left kidney, possibly also has renovascular disease. s/p thoracentesis Continue Lasix, edema is improving. Follow urine out put and BMP. (2) Atrial fibrillation with rapid ventricular response Plan: cardiology following (3) Bilateral pleural effusion (4) Hypertension Harris Castillo MD Dec 30, 2016 16:02
--- NOTE | 2016-12-30 17:08 | PD.CARD.PN ---
Subjective Subjective Remarks No CP or SOB, still w LE edema Objective Medications Current Medications Medications (Trade) Dose Ordered Sig/Jah Route Start Time Stop Time Status Last Admin (Catapres) 0.1 mg Q6H PRN PO 12/26/16 22:00 (Hydrodiuril) 25 mg DAILY PO 12/27/16 09:00 12/30/16 08:44 (Prinivil) 20 mg DAILY PO 12/27/16 09:00 12/30/16 08:44 (Desyrel) 50 mg HS PRN PO 12/26/16 22:00 12/29/16 21:33 (NS Flush) 2 ml UNSCH PRN IV FLUSH 12/26/16 22:00 (NS Flush) 2 ml BID IV FLUSH 12/27/16 09:00 12/30/16 08:45 (Tylenol) 650 mg Q4H PRN PO 12/26/16 22:00 (Zofran Inj) 4 mg Q6H PRN IVP 12/26/16 22:00 12/29/16 06:15 (Dulcolax Supp) 10 mg DAILY PRN [place] 12/26/16 22:00 (Colace) 100 mg Q12H PO 12/26/16 22:00 12/30/16 08:44 (Milk Of Magnesia Liq) 30 ml Q12H PRN PO 12/26/16 22:00 (Senokot) 17.2 mg Q12H PRN PO 12/26/16 22:00 (Narcan Inj) 0.4 mg UNSCH PRN IV 12/26/16 22:00 (D50w (Vial) Inj) 25 ml UNSCH PRN IV PUSH 12/27/16 08:30 (Glucagon Inj) 1 mg UNSCH PRN OTHER 12/27/16 08:30 ([place] 10-325 Mg) 1 tab Q4H PRN PO 12/27/16 14:00 12/30/16 16:36 (Miralax) 17 gm DAILY PO 12/27/16 11:30 12/28/16 10:24 (Lasix Inj) 20 mg BID@09,18 IV PUSH 12/28/16 09:00 12/30/16 16:36 (Coreg) 25 mg Q12HR PO 12/28/16 21:00 12/30/16 08:44 (SoluMEDROL INJ) 40 mg BID IV 12/29/16 09:00 12/30/16 08:44 (Norvasc) 10 mg DAILY PO 12/29/16 12:00 12/30/16 08:44 (Levemir Inj) 10 units HS SQ 12/29/16 21:00 12/29/16 21:31 (Oramorph Sr) 15 mg Q12HR PO 12/29/16 14:00 12/30/16 08:44 (Eliquis) 2.5 mg BID PO 12/30/16 21:00 Vital Signs / I&O Vital Signs Date Time Temp Pulse Resp B/P Pulse Ox O2 Delivery O2 Flow Rate FiO2 12/30/16 12:00 98.5 94 20 156/87 97 12/30/16 08:00 113 12/30/16 08:00 Room Air 12/30/16 08:00 97.0 106 22 142/91 98 12/30/16 04:58 95 12/30/16 04:00 97.3 84 18 135/82 97 12/30/16 00:00 97.4 76 18 118/77 94 12/29/16 21:40 Room Air 12/29/16 20:00 61 12/29/16 20:00 97.2 62 18 123/81 94 I/O 12/29/16 12/29/16 12/29/16 12/30/16 12/30/16 12/30/16 07:00 15:00 23:00 07:00 15:00 23:00 Intake Total 200 ml 360 ml 480 ml 100 ml Output Total 400 ml 500 ml Balance 200 ml 360 ml 80 ml -400 ml Intake Oral 360 ml 480 ml 100 ml IV Total 200 ml Output Urine Total 400 ml 500 ml # Voids 3 # Bowel Movements 0 0 Physical Exam GENERAL: In NAD SKIN: Warm and dry. HEAD: Normocephalic. EYES: No scleral icterus. No injection or drainage. NECK: Supple, trachea midline. No JVD or lymphadenopathy. CARDIOVASCULAR: Irregular rate and rhythm without murmurs, gallops, or rubs. RESPIRATORY: Breath sounds equal bilaterally. No accessory muscle use. GASTROINTESTINAL: Abdomen soft, non-tender, nondistended. MUSCULOSKELETAL: No cyanosis, bilat LE edema improving. Laboratory Laboratory Tests Test 12/30/16 05:06 White Blood Count 4.0 TH/MM3 Red Blood Count 3.27 MIL/MM3 Hemoglobin 9.5 GM/DL Hematocrit 29.5 % Mean Corpuscular Volume 90.2 FL Mean Corpuscular Hemoglobin 29.1 PG Mean Corpuscular Hemoglobin 32.2 % Concent Red Cell Distribution Width 14.3 % Platelet Count 89 TH/MM3 Mean Platelet Volume 10.9 FL Neutrophils (%) (Auto) 89.3 % Lymphocytes (%) (Auto) 8.4 % Monocytes (%) (Auto) 2.1 % Eosinophils (%) (Auto) 0.0 % Basophils (%) (Auto) 0.2 % Neutrophils # (Auto) 3.6 TH/MM3 Lymphocytes # (Auto) 0.3 TH/MM3 Monocytes # (Auto) 0.1 TH/MM3 Eosinophils # (Auto) 0.0 TH/MM3 Basophils # (Auto) 0.0 TH/MM3 CBC Comment AUTO DIFF Differential Comment AUTO DIFF CONFIRMED Platelet Estimate LOW Platelet Morphology Comment NORMAL Sodium Level 135 MEQ/L Potassium Level 4.5 MEQ/L Chloride Level 103 MEQ/L Carbon Dioxide Level 20.4 MEQ/L Anion Gap 12 MEQ/L Blood Urea Nitrogen 79 MG/DL Creatinine 3.58 MG/DL Estimat Glomerular Filtration 18 ML/MIN Rate Random Glucose 162 MG/DL Calcium Level 8.3 MG/DL Imaging Last Impressions Renal Ultrasound 12/30/16 0000 Signed Impressions: Service Date/Time: Friday, December 30, 2016 11:07 - CONCLUSION: 1. Small amount of abdominal ascites. 2. Increased cortical echogenicity of the kidneys bilaterally suggesting some degree of medical renal disease. 3. Asymmetry of the kidney sizes with the right larger than the left. This could represent some vascular compromise to the left kidney. Derrick Block MD Chest X-Ray 12/29/16 0000 Signed Impressions: Service Date/Time: Thursday, December 29, 2016 16:20 - CONCLUSION: 1. Compared with December 26 there is improved right-sided basilar airspace disease and slight worsening of left basilar opacity. No pneumothorax. Rafael Holman MD Chest Ultrasound 12/27/16 0000 Signed Impressions: Service Date/Time: Tuesday, December 27, 2016 22:50 - CONCLUSION: Large right pleural effusion. Chaka Santoyo Jr., MD Abdomen/Pelvis CT 12/26/161922 Signed Impressions: Service Date/Time: December 19:39 - CONCLUSION: 1. Moderate bilateral pleural effusions, increased in size from April 2016. 2. Mild ascites which has developed since prior examination. 3. Moderate anasarca, increased since prior examination. 4. Postoperative changes of spinal fixation with multiple prior compression deformities similar to prior exam. Rafael Holman MD Assessment and Plan Problem List: (1) Atrial fibrillation with rapid ventricular response (2) Edema (3) Bilateral pleural effusion (4) Hypertension (5) Insulin dependent diabetes mellitus (6) Acute kidney injury superimposed on CKD Assessment and Plan AF rate controlled. Continue carvedilol, stay off diltiazem. Anticoagulation with Eliquis. BP control. Still fluid overloaded, continue diuresis closely monitoring renal fx. Pulmonary eval in progress, thoracentesis considered. Check echo. Increase activity. Kamar Arthur MD Dec 30, 2016 17:08
--- NOTE | 2016-12-30 19:29 | HHI.PR ---
Subjective Remarks He is breathing better today. On O2 3L. CXR was better after thoracentesis Objective Vital Signs Date Time Temp Pulse Resp B/P Pulse Ox O2 Delivery O2 Flow Rate FiO2 12/30/16 16:00 97.4 96 22 140/74 97 12/30/16 12:00 98.5 94 20 156/87 97 12/30/16 08:00 113 12/30/16 08:00 Room Air 12/30/16 08:00 97.0 106 22 142/91 98 12/30/16 04:58 95 12/30/16 04:00 97.3 84 18 135/82 97 12/30/16 00:00 97.4 76 18 118/77 94 12/29/16 21:40 Room Air 12/29/16 20:00 61 12/29/16 20:00 97.2 62 18 123/81 94 I/O 12/29/16 12/29/16 12/29/16 12/30/16 12/30/16 12/30/16 07:00 15:00 23:00 07:00 15:00 23:00 Intake Total 200 ml 360 ml 480 ml 100 ml Output Total 400 ml 500 ml Balance 200 ml 360 ml 80 ml -400 ml Intake Oral 360 ml 480 ml 100 ml IV Total 200 ml Output Urine Total 400 ml 500 ml # Voids 3 # Bowel Movements 0 0 Result Diagram: 12/30/16 0506 12/30/16 0506 Procedures Thoracentesis done Objective Remarks IN GENERAL: This averagely built middle-aged white male who is alert and pale,not dyspneic at rest. HEAD, EYES, EARS, NOSE, AND THROAT: Head normocephalic. Pupils reactive. Sclerae are clear Tongue is moist. Throat was clear. NECK: The neck is supple. No bruits or thyroid enlargement. CHEST: Distant breath sounds at bases with wheezes bilaterally and prolonged expiration. HEART: The heart sounds irregular S1-S2. No murmur. ABDOMEN: Soft, benign. No masses or organomegaly. EXTREMITIES: Mild varicosities 2+ edema with diminished pulses. Reflexes 1+ with no gross motor deficits. NEUROLOGIC: Cranial nerves grossly intact. RECTUM: Rectal exam is deferred. SKIN: No lesion. Assessment and Plan Assessment and Plan IMPRESSION 1. Atrial fibrillation with rapid ventricular response. 2. Bilateral pleural effusions, more on the right. 3. Diabetes mellitus type 2 4. Hypertension 5. UTI 6. Chronic kidney disease 7. Ascites and abdominal pains. Plan 1. Wean off O2 2. CXR in am 3. Nebs qid , duoneb. 4. Cont Antibiotics 5. Cont Diuretics . 6. IS at bedside q3h. 7. D/C Faith Wade MD Dec 30, 2016 19:29
[2016-12-30] MEDS: ONDANSETRON HCL 4 MG/2 ML VIAL IVP PRN (19:41)
[2016-12-30] MEDS: APIXABAN 2.5 MG TABLET PO SCH (20:58)
[2016-12-30] MEDS: INSULIN DETEMIR 100 UNITS/ML VIAL SQ SCH (20:58)
[2016-12-31] VITALS (8 sets, daily range): BP systolic 117–152; BP diastolic 73–92; PULSE 80–95; RESP 16–20; TEMP 95.8–98; O2SAT 95–98
[2016-12-31] MEDS: RESP: ALBUTEROL 2.5 MG/IPRATROPIUM 0.5 MG NEB (SCH) NEB ×4 (03:28→21:06)
[2016-12-31] MEDS: ACETAMINOPHEN/HYDROcodone 325 MG/10 MG TAB PO PRN ×2 (05:26→19:32)
--- NOTE | 2016-12-31 06:57 | HHI.PR ---
Subjective Remarks Patient seen at bedside OOB to chair. Alert and cooperative. Denies any CP or SOB. Objective Vital Signs Date Time Temp Pulse Resp B/P Pulse Ox O2 Delivery O2 Flow Rate FiO2 12/31/16 04:19 97.8 95 20 152/83 95 12/31/16 00:12 98.0 84 20 127/76 96 12/30/16 21:06 97 21 12/30/16 20:33 97.8 101 20 127/75 96 12/30/16 19:48 Room Air 12/30/16 16:00 97.4 96 22 140/74 97 12/30/16 12:00 98.5 94 20 156/87 97 12/30/16 08:00 113 12/30/16 08:00 Room Air 12/30/16 08:00 97.0 106 22 142/91 98 I/O 12/30/16 12/30/16 12/30/16 12/31/16 12/31/16 12/31/16 07:00 15:00 23:00 07:00 15:00 23:00 Intake Total 100 ml 120 ml Output Total 500 ml 200 ml Balance -400 ml -80 ml Intake Oral 100 ml 120 ml Output Urine Total 500 ml 200 ml # Bowel Movements 0 2 Result Diagram: 12/30/16 0506 12/30/16 0506 Imaging Last 48 hours Impressions Renal Ultrasound 12/30/16 0000 Signed Impressions: Service Date/Time: Friday, December 30, 2016 11:07 - CONCLUSION: 1. Small amount of abdominal ascites. 2. Increased cortical echogenicity of the kidneys bilaterally suggesting some degree of medical renal disease. 3. Asymmetry of the kidney sizes with the right larger than the left. This could represent some vascular compromise to the left kidney. Derrick Block MD Procedures Thoracentesis done Other Results GENERAL: Alert and cooperative SKIN: Warm and dry. HEAD: Normocephalic. EYES: No scleral icterus. No injection or drainage. NECK: Supple, trachea midline. No JVD or lymphadenopathy. CARDIOVASCULAR: Regular rate and rhythm without murmurs, gallops, or rubs. RESPIRATORY: Breath sounds equal bilaterally. No accessory muscle use. GASTROINTESTINAL: Abdomen soft, non-tender, nondistended. MUSCULOSKELETAL: No cyanosis, or edema. BACK: Nontender without obvious deformity. No CVA tenderness. Medications and IVs Current Medications Medications (Trade) Dose Ordered Sig/Jah Route Start Time Stop Time Status Last Admin (Catapres) 0.1 mg Q6H PRN PO 12/26/16 22:00 (Hydrodiuril) 25 mg DAILY PO 12/27/16 09:00 12/30/16 08:44 (Prinivil) 20 mg DAILY PO 12/27/16 09:00 12/30/16 08:44 (Desyrel) 50 mg HS PRN PO 12/26/16 22:00 12/29/16 21:33 (NS Flush) 2 ml UNSCH PRN IV FLUSH 12/26/16 22:00 (NS Flush) 2 ml BID IV FLUSH 12/27/16 09:00 12/30/16 21:00 (Tylenol) 650 mg Q4H PRN PO 12/26/16 22:00 (Zofran Inj) 4 mg Q6H PRN IVP 12/26/16 22:00 12/30/16 19:41 (Dulcolax Supp) 10 mg DAILY PRN NC 12/26/16 22:00 (Colace) 100 mg Q12H PO 12/26/16 22:00 12/30/16 20:57 (Milk Of Magnesia Liq) 30 ml Q12H PRN PO 12/26/16 22:00 (Senokot) 17.2 mg Q12H PRN PO 12/26/16 22:00 (Narcan Inj) 0.4 mg UNSCH PRN IV 12/26/16 22:00 (D50w (Vial) Inj) 25 ml UNSCH PRN IV PUSH 12/27/16 08:30 (Glucagon Inj) 1 mg UNSCH PRN OTHER 12/27/16 08:30 ([place] 10-325 Mg) 1 tab Q4H PRN PO 12/27/16 14:00 12/31/16 05:26 (Miralax) 17 gm DAILY PO 12/27/16 11:30 12/28/16 10:24 (Lasix Inj) 20 mg BID@09,18 IV PUSH 12/28/16 09:00 12/30/16 16:36 (Coreg) 25 mg Q12HR PO 12/28/16 21:00 12/30/16 20:57 (SoluMEDROL INJ) 40 mg BID IV 12/29/16 09:00 12/30/16 20:57 (Norvasc) 10 mg DAILY PO 12/29/16 12:00 12/30/16 08:44 (Levemir Inj) 10 units HS SQ 12/29/16 21:00 12/30/16 20:58 (Oramorph Sr) 15 mg Q12HR PO 12/29/16 14:00 12/30/16 20:57 (Eliquis) 2.5 mg BID PO 12/30/16 21:00 12/30/16 20:58 Assessment and Plan Problem List: (1) Atrial fibrillation with rapid ventricular response Status: Acute Plan: Patient was not aware that he had AFIB. HR as high as the 150 when he arrived. Cardizem gtt discontinued patient with 2-3 second pauses. Rate in 100. Eliquis resumed s/p thoracentesis. ECHO ordered and pending (2) Acute kidney injury superimposed on CKD Status: Acute Plan: Nephrology managing. Elevated BUN and creatinine. GFR pending today. Lasix ordered BID. Kidney US Has smaller left kidney. (3) Hypertension Status: Chronic Plan: Continue current treatment. Will monitor (4) UTI (urinary tract infection) Status: Acute Plan: UA with large amount of leukocytes. On Cipro culture negative. Will discontinue. (5) Bilateral pleural effusion Status: Acute Plan: Pulmonary managing. Patient lungs sounds diminished. On Dounebs. Pulmonary consulted for management. US showed 755 cc. Thoracentesis done. Steroids discontinued. (6) Insulin dependent diabetes mellitus Status: Chronic Plan: BS elevated as high as 446. BS AC and HS. SS ordered. Could be related to steriods. Diet changed to diabetic diet. Home insulin regimen resumed. (7) Edema Status: Acute Plan: Lasix ordered BID per nephrology. Edema improved. (8) Abdominal pain Status: Acute Plan: CT with mild ascites and anasarca noted. GI consulted and following. Hep viral load ordered. Assessment and Plan Assessment and plan discussed with Dr. Davila Discharge Planning Plan for discharge home with [facility] Vanesa Foss Dec 31, 2016 06:57
[2016-12-31] MEDS: INSULIN ASPART SUPPLEMENTAL SCALE SQ SCH ×4 (07:00→21:25)
[2016-12-31 07:51] LABS: AUTOMATED NEUTROPHIL # 4.4 TH/MM3 (1.8-7.7); BASOPHIL % 0.1 % (0.0-2.0); HEMATOCRIT 29.7 % (39.0-51.0); LYMPH % 6.2 % (9.0-44.0); LYMPHOCYTE # 0.3 TH/MM3 (1.0-4.8); MEAN CELL VOLUME 91.3 FL (80.0-100.0); MEAN CORPUSCULAR HEMOGLOBIN 28.9 PG (27.0-34.0); MEAN CORPUSCULAR HGB CONC 31.7 % (32.0-36.0); MONO % 2.5 % (0.0-8.0); NEUT % 91.2 % (16.0-70.0); PLATELET COUNT 82 TH/MM3 (150-450); RED BLOOD COUNT 3.26 MIL/MM3 (4.50-5.90); RED CELL DISTRIBUTION WIDTH 14.5 % (11.6-17.2); WHITE BLOOD COUNT 4.9 TH/MM3 (4.0-11.0)
[2016-12-31 07:54] LABS: HEMO FLAGS AUTO DIFF
[2016-12-31] MEDS: LISINOPRIL 20 MG TAB PO SCH (08:04)
[2016-12-31] MEDS: FUROSEMIDE 20 MG/2 ML VIAL IV PUSH SCH ×2 (08:05→17:32)
[2016-12-31] MEDS: CARVEDILOL 12.5 MG TAB PO SCH ×2 (08:05→21:27)
[2016-12-31] MEDS: methylPREDNISolone SOD SUCC 40 MG/1 ML VIAL IV SCH ×2 (08:05→21:26)
[2016-12-31] MEDS: POLYETHYLENE GLYCOL 17 GM PKG PO SCH (08:05)
[2016-12-31] MEDS: APIXABAN 2.5 MG TABLET PO SCH ×2 (08:06→21:29)
[2016-12-31] MEDS: DOCUSATE SODIUM 100 MG CAP PO SCH ×2 (08:06→21:27)
[2016-12-31] MEDS: MORPHINE SULFATE 15 MG CONTROLLED RELEASE TAB PO SCH ×2 (08:06→21:29)
[2016-12-31] MEDS: SODIUM CHLORIDE 0.9% FLUSH 10 ML FLUSH IV FLUSH SCH ×2 (08:07→21:31)
[2016-12-31] MEDS: HYDROCHLOROTHIAZIDE 25 MG TAB PO SCH (08:11)
[2016-12-31 08:31] LABS: BICARBONATE 18.5 MEQ/L (21.0-32.0); POTASSIUM 4.1 MEQ/L (3.5-5.1)
[2016-12-31 08:55] LABS: OVALOCYTES 1+ (NORMAL); SCAN/DIFF AUTO DIFF CONFIRMED
--- NOTE | 2016-12-31 13:19 | EC ---
Study Study Date:12/31/2016 STUDY CONCLUSIONS SUMMARY - Left ventricle: The cavity size was normal. Wall thickness was normal. Systolic function was moderately reduced. The estimated ejection fraction was in the range of 35% to 40%. Wall motion was normal; there were no regional wall motion abnormalities. - Aortic valve: Valve area: 1.88cm^2 (Vmax). - Mitral valve: Mildly calcified annulus. - Tricuspid valve: Mild-moderate regurgitation. - Pulmonary arteries: PA peak pressure: 38mm Hg (S). If LV function is below 40, please consider prescribing an ACEI or ARB or document rationale for non-use. PROCEDURE DATA STUDY STATUS: Elective. Procedure: Transthoracic echocardiography. Image quality was good. Scanning was performed from the parasternal, apical, and subcostal acoustic windows. Study completion: The patient tolerated the procedure well. Transthoracic echocardiography. M-mode, complete 2D, complete spectral Doppler, and color Doppler. Height: Height: 71in. Weight: Weight: 211.6lb. Body mass index: BMI: 29.6kg/m^2. Body surface area: BSA: 2.16m^2. Patient status: Inpatient. CARDIAC ANATOMY LEFT VENTRICLE: The cavity size was normal. Wall thickness was normal. Systolic function was moderately reduced. The estimated ejection fraction was in the range of 35% to 40%. Wall motion was normal; there were no regional wall motion abnormalities. AORTIC VALVE: Trileaflet; mildly thickened, mildly calcified leaflets. Doppler: Transvalvular velocity was within the normal range. There was no stenosis. No regurgitation. Valve area: 1.88cm^2 (Vmax). Indexed valve area: 0.87cm^2/m^2 (Vmax). AORTA: Aortic root: The aortic root was normal in size. MITRAL VALVE: Mildly calcified annulus. Doppler: Transvalvular velocity was within the normal range. There was no evidence for stenosis. No regurgitation. LEFT ATRIUM: moderately enlarged The atrium was normal in size. RIGHT VENTRICLE: The cavity size was normal. Wall thickness was normal. PULMONIC VALVE: Doppler: Transvalvular velocity was within the normal range. There was no evidence for stenosis. No regurgitation. TRICUSPID VALVE: Structurally normal valve. Doppler: Transvalvular velocity was within the normal range. Mild-moderate regurgitation. PULMONARY ARTERY: The main pulmonary artery was normal-sized. Systolic pressure was within the normal range. RIGHT ATRIUM: The atrium was normal in size. PERICARDIUM: There was no pericardial effusion. SYSTEMIC VEINS: Inferior vena cava: The vessel was normal in size. Patient weight: 211.6lb _Ejection fraction:_ 65-75% _Fractional shortening:_ 32% up to 5Kg 5-11.5Kg 11.6-22.9Kg 23-45Kg 45-57Kg Aortic Root 7-13 <17 13-22 17-27 17-27 LA diam 6-13 <23 24-38 33-47 37-40 RVID 10-17 7-15 7-15 7-18 8-17 LVIDd 12-22 <32 24-38 33-47 37-40 LVPW 2-4 3-6 5-7 6-8 7-8 IVS 2-4 3-6 5-7 6-8 7-8 BASIC MEASUREMENTS ADULT NORMAL Left ventricle LV internal dimension, ED, chordal 50 mm 43-52 level, PLAX LV internal dimension, ES, chordal *42.5 mm 23-38 level, PLAX Fractional shortening, chordal level, *15 % >29 PLAX LV posterior wall thickness, ED 8.53 mm IVS/LVPW ratio, ED 1 <1.3 Ventricular septum Septal thickness, ED 8.57 mm Aortic valve Leaflet separation 18 mm 15-26 BASIC MEASUREMENTS ADULT NORMAL Aortic valve Leaflet separation 18 mm 15-26 Aorta Root diameter, ED 32 mm 20-37 Left atrium Anterior-posterior dimension, ES *48 mm 19-40 Anterior-posterior dimension index, ES *2.22 cm/m^2 <2.2 LA/aortic root ratio 1.5 DOPPLER MEASUREMENTS ADULT NORMAL Main pulmonary artery Pressure, S *38 mm Hg =30 Aortic valve Peak velocity, S 144 cm/s Valve area, Vmax 1.88 cm^2 Valve area index, Vmax 0.87 cm^2/m^2 Tricuspid valve Regurgitant peak velocity 223 cm/s Peak RV-RA gradient, S 20 mm Hg Maximal regurgitant velocity 223 cm/s Systemic veins Estimated CVP 10 mm Hg Right ventricle RV pressure, S *41 mm Hg <30 Pulmonic valve Peak velocity, S 82.8 cm/s LEGEND: Mean values are shown as u=mean value. Asterisk (*) goodwin values outside specified normal range. Alfredito García [id number]
--- NOTE | 2016-12-31 15:17 | PD.CARD.PN ---
Subjective Subjective Remarks No CP or SOB, still edematous Objective Medications Current Medications Medications (Trade) Dose Ordered Sig/Jah Route Start Time Stop Time Status Last Admin (Catapres) 0.1 mg Q6H PRN PO 12/26/16 22:00 (Hydrodiuril) 25 mg DAILY PO 12/27/16 09:00 12/31/16 08:11 (Prinivil) 20 mg DAILY PO 12/27/16 09:00 12/31/16 08:04 (Desyrel) 50 mg HS PRN PO 12/26/16 22:00 12/29/16 21:33 (NS Flush) 2 ml UNSCH PRN IV FLUSH 12/26/16 22:00 (NS Flush) 2 ml BID IV FLUSH 12/27/16 09:00 12/31/16 08:07 (Tylenol) 650 mg Q4H PRN PO 12/26/16 22:00 (Zofran Inj) 4 mg Q6H PRN IVP 12/26/16 22:00 12/30/16 19:41 (Dulcolax Supp) 10 mg DAILY PRN DC 12/26/16 22:00 (Colace) 100 mg Q12H PO 12/26/16 22:00 12/31/16 08:06 (Milk Of Magnesia Liq) 30 ml Q12H PRN PO 12/26/16 22:00 (Senokot) 17.2 mg Q12H PRN PO 12/26/16 22:00 (Narcan Inj) 0.4 mg UNSCH PRN IV 12/26/16 22:00 (D50w (Vial) Inj) 25 ml UNSCH PRN IV PUSH 12/27/16 08:30 (Glucagon Inj) 1 mg UNSCH PRN OTHER 12/27/16 08:30 ([place] 10-325 Mg) 1 tab Q4H PRN PO 12/27/16 14:00 12/31/16 05:26 (Miralax) 17 gm DAILY PO 12/27/16 11:30 12/31/16 08:05 (Lasix Inj) 20 mg BID@09,18 IV PUSH 12/28/16 09:00 12/31/16 08:05 (Coreg) 25 mg Q12HR PO 12/28/16 21:00 12/31/16 08:05 (SoluMEDROL INJ) 40 mg BID IV 12/29/16 09:00 12/31/16 08:05 (Norvasc) 10 mg DAILY PO 12/29/16 12:00 12/31/16 08:11 (Levemir Inj) 10 units HS SQ 12/29/16 21:00 12/30/16 20:58 (Oramorph Sr) 15 mg Q12HR PO 12/29/16 14:00 12/31/16 08:06 (Eliquis) 2.5 mg BID PO 12/30/16 21:00 12/31/16 08:06 Vital Signs / I&O Vital Signs Date Time Temp Pulse Resp B/P Pulse Ox O2 Delivery O2 Flow Rate FiO2 12/31/16 12:00 97.0 80 20 125/73 96 12/31/16 09:54 Room Air 12/31/16 09:04 97 21 12/31/16 08:00 97.5 90 20 144/92 98 12/31/16 04:19 97.8 95 20 152/83 95 12/31/16 00:12 98.0 84 20 127/76 96 12/30/16 21:06 97 21 12/30/16 20:33 97.8 101 20 127/75 96 12/30/16 20:00 103 12/30/16 19:48 Room Air 12/30/16 16:00 97.4 96 22 140/74 97 I/O 12/30/16 12/30/16 12/30/16 12/31/16 12/31/16 12/31/16 07:00 15:00 23:00 07:00 15:00 23:00 Intake Total 100 ml 120 ml Output Total 500 ml 200 ml Balance -400 ml -80 ml Intake Oral 100 ml 120 ml Output Urine Total 500 ml 200 ml # Bowel Movements 0 2 Physical Exam GENERAL: In NAD SKIN: Warm and dry. HEAD: Normocephalic. EYES: No scleral icterus. No injection or drainage. NECK: Supple, trachea midline. No JVD or lymphadenopathy. CARDIOVASCULAR: Irregular rate and rhythm without murmurs, gallops, or rubs. RESPIRATORY: Breath sounds equal bilaterally. No accessory muscle use. GASTROINTESTINAL: Abdomen soft, non-tender, nondistended. MUSCULOSKELETAL: No cyanosis, bilat LE edema improving. Laboratory Laboratory Tests Test 12/31/16 06:10 White Blood Count 4.9 TH/MM3 Red Blood Count 3.26 MIL/MM3 Hemoglobin 9.4 GM/DL Hematocrit 29.7 % Mean Corpuscular Volume 91.3 FL Mean Corpuscular Hemoglobin 28.9 PG Mean Corpuscular Hemoglobin 31.7 % Concent Red Cell Distribution Width 14.5 % Platelet Count 82 TH/MM3 Mean Platelet Volume 11.0 FL Neutrophils (%) (Auto) 91.2 % Lymphocytes (%) (Auto) 6.2 % Monocytes (%) (Auto) 2.5 % Eosinophils (%) (Auto) 0.0 % Basophils (%) (Auto) 0.1 % Neutrophils # (Auto) 4.4 TH/MM3 Lymphocytes # (Auto) 0.3 TH/MM3 Monocytes # (Auto) 0.1 TH/MM3 Eosinophils # (Auto) 0.0 TH/MM3 Basophils # (Auto) 0.0 TH/MM3 CBC Comment AUTO DIFF Differential Comment AUTO DIFF CONFIRMED Ovalocytes 1+ Sodium Level 136 MEQ/L Potassium Level 4.1 MEQ/L Chloride Level 104 MEQ/L Carbon Dioxide Level 18.5 MEQ/L Anion Gap 14 MEQ/L Blood Urea Nitrogen 97 MG/DL Creatinine 3.84 MG/DL Estimat Glomerular Filtration 16 ML/MIN Rate Random Glucose 237 MG/DL Calcium Level 8.0 MG/DL Imaging Last Impressions Renal Ultrasound 12/30/16 0000 Signed Impressions: Service Date/Time: Friday, December 30, 2016 11:07 - CONCLUSION: 1. Small amount of abdominal ascites. 2. Increased cortical echogenicity of the kidneys bilaterally suggesting some degree of medical renal disease. 3. Asymmetry of the kidney sizes with the right larger than the left. This could represent some vascular compromise to the left kidney. Derrick Block MD Chest X-Ray 12/29/16 0000 Signed Impressions: Service Date/Time: Thursday, December 29, 2016 16:20 - CONCLUSION: 1. Compared with December 26 there is improved right-sided basilar airspace disease and slight worsening of left basilar opacity. No pneumothorax. Rafael Holman MD Chest Ultrasound 12/27/16 0000 Signed Impressions: Service Date/Time: Tuesday, December 27, 2016 22:50 - CONCLUSION: Large right pleural effusion. Chaka Santoyo Jr., MD Abdomen/Pelvis CT 3/23/17 1923 Signed Impressions: Service Date/Time: December 19:39 - CONCLUSION: 1. Moderate bilateral pleural effusions, increased in size from April 2016. 2. Mild ascites which has developed since prior examination. 3. Moderate anasarca, increased since prior examination. 4. Postoperative changes of spinal fixation with multiple prior compression deformities similar to prior exam. Rafael Holman MD Assessment and Plan Problem List: (1) Atrial fibrillation with rapid ventricular response (2) Edema (3) Bilateral pleural effusion (4) Hypertension (5) Insulin dependent diabetes mellitus (6) Acute kidney injury superimposed on CKD Assessment and Plan AF rate controlled. Echo w moderate LV systolic dysfunction. Continue carvedilol , stay off diltiazem. Anticoagulation with Eliquis. BP control. Still fluid overloaded, continue diuresis closely monitoring renal fx. Nephrology evaluation. Pulmonary evaluation in progress, had thoracentesis. Increase activity. Kamar Arthur MD Dec 31, 2016 15:17
[2016-12-31] MEDS: ONDANSETRON HCL 4 MG/2 ML VIAL IVP PRN (15:19)
--- NOTE | 2016-12-31 16:46 | HHI.NPPN ---
Subjective History of Present Illness 61-year-old male with a past medical history of hypertension, diabetes mellitus, history of chronic kidney disease, chronic back pain, history of osteomyelitis, came to the hospital with complaint of generalized edema, dysuria and rapid ventricular rate. I was called to see the patient because of elevated BUN and creatinine. The patient has a known history of chronic kidney disease. When he was here last year in April he had a creatinine of 2.7-2.96 and now he came with a creatinine of 3.3. The patient has this kidney disease going on for some time and according to him he has never seen any special tester before, but looking back seems like he was seen by Dr. Spencer when was here in April last year but he has not been following with a special tester. Additional Remarks Patient is alert, no SOB, feeling better, want to go home. Review of Systems General Constitutional: Fatigue Objective Data Data 12/30/16 12/31/16 19:00 07:00 Intake Total 120 ml Output Total 200 ml Balance -80 ml Intake Oral 120 ml Output Urine Total 200 ml # Bowel Movements 2 Vital Signs Date Time Temp Pulse Resp B/P Pulse Ox O2 Delivery O2 Flow Rate FiO2 12/31/16 12:00 97.0 80 20 125/73 96 12/31/16 09:54 Room Air 12/31/16 09:04 97 21 12/31/16 08:00 97.5 90 20 144/92 98 12/31/16 04:19 97.8 95 20 152/83 95 12/31/16 00:12 98.0 84 20 127/76 96 12/30/16 21:06 97 21 12/30/16 20:33 97.8 101 20 127/75 96 12/30/16 20:00 103 12/30/16 19:48 Room Air -: 12/31/16 0610 12/31/16 0610 Physical Exam General Appearance: Well Developed, No Acute Distress, Comfortable Eyes Eye Exam: Pupils Equal Neck Neck Exam: Neck Supple Pulmonary Resp Exam: Breath Sounds Equal, No Distress, Rhonchi, Decreased Bases Cardiology CV Exam: Arrhythmia Gastrointestinal/Abdomen GI Exam: Soft, Non-Tender Extremeties Extremities Exam: Moderate Edema, Pitting Edema Neurologic Neuro Exam: Alert, Awake, Oriented Psychiatric Psych Exam: Appropriate Responses Assessment/Plan Assessment Summary: CKD Stage IV Problem List: (1) Acute kidney injury superimposed on CKD Plan: Patient has stage 4 chronic kidney disease. Most likely has Diabetic nephropathy. Has smaller left kidney, possibly also has renovascular disease. s/p thoracentesis Continue Lasix, edema is improving. Creatinine is slightly increased. Patient can be discharged on oral Lasix. To follow with me in 2 weeks. (2) Atrial fibrillation with rapid ventricular response Plan: cardiology following (3) Bilateral pleural effusion (4) Hypertension Problem Qualifiers (1) Hypertension: Qualified Code: I10 - Essential hypertension Harris Castillo MD Dec 31, 2016 16:46
[2016-12-31] MEDS: INSULIN DETEMIR 100 UNITS/ML VIAL SQ SCH (21:25)
--- NOTE | 2016-12-31 22:48 | HHI.GIFU ---
Subjective Remarks Patient laying in bed and doing well has no complaints he thinks he'll be going home tomorrow Objective Vitals I&O Vital Signs Date Time Temp Pulse Resp B/P Pulse Ox O2 Delivery O2 Flow Rate FiO2 12/31/16 20:25 95.8 88 16 117/76 97 12/31/16 16:00 96.7 82 18 121/76 97 12/31/16 12:00 97.0 80 20 125/73 96 12/31/16 09:54 Room Air 12/31/16 09:04 97 21 12/31/16 08:00 97.5 90 20 144/92 98 12/31/16 04:19 97.8 95 20 152/83 95 12/31/16 00:12 98.0 84 20 127/76 96 I/O 12/30/16 12/30/16 12/30/16 12/31/16 12/31/16 12/31/16 07:00 15:00 23:00 07:00 15:00 23:00 Intake Total 100 ml 120 ml 480 ml 240 ml Output Total 500 ml 200 ml 950 ml 550 ml Balance -400 ml -80 ml -470 ml -310 ml Intake Oral 100 ml 120 ml 480 ml 240 ml Output Urine Total 500 ml 200 ml 950 ml 550 ml # Bowel Movements 0 2 0 1 Laboratory Laboratory Tests Test 12/31/16 06:10 White Blood Count 4.9 Red Blood Count 3.26 Hemoglobin 9.4 Hematocrit 29.7 Mean Corpuscular Volume 91.3 Mean Corpuscular Hemoglobin 28.9 Mean Corpuscular Hemoglobin 31.7 Concent Red Cell Distribution Width 14.5 Platelet Count 82 Mean Platelet Volume 11.0 Neutrophils (%) (Auto) 91.2 Lymphocytes (%) (Auto) 6.2 Monocytes (%) (Auto) 2.5 Eosinophils (%) (Auto) 0.0 Basophils (%) (Auto) 0.1 Neutrophils # (Auto) 4.4 Lymphocytes # (Auto) 0.3 Monocytes # (Auto) 0.1 Eosinophils # (Auto) 0.0 Basophils # (Auto) 0.0 CBC Comment AUTO DIFF Differential Comment AUTO DIFF CONFIRMED Ovalocytes 1+ Sodium Level 136 Potassium Level 4.1 Chloride Level 104 Carbon Dioxide Level 18.5 Anion Gap 14 Blood Urea Nitrogen 97 Creatinine 3.84 Estimat Glomerular Filtration 16 Rate Random Glucose 237 Calcium Level 8.0 Date/Time Procedure Status Source Growth 12/29/16 14:00 Gram Stain - Final Resulted Fluid Pleural Fluid 12/29/16 14:00 Body Fluid Culture - Preliminary Resulted Fluid Pleural Fluid NO GROWTH IN 48 HOURS. 12/29/16 14:00 Fungal Smear - Final Resulted Fluid Pleural Fluid NO FUNGAL ELEMENTS SEEN. 12/29/16 14:00 Fungal Culture Resulted Fluid Pleural Fluid Pending 12/29/16 14:00 Acid Fast Stain - Final Resulted Fluid Pleural Fluid NO ACID FAST BACILLI SEEN 12/29/16 14:00 Mycobacterial Culture Resulted Fluid Pleural Fluid Pending Physical Exam HEENT: Normocephalic no jaundice throat is clear NECK: Neck is supple CHEST: Chest is clear to auscultation and percussion. CARDIAC: Regular rate and rhythm with no murmur gallop or rubs. ABDOMEN: Soft, nondistended, nontender; no hepatosplenomegaly; bowel sounds are present in all four quadrants. EXTREMITIES: No clubbing, cyanosis, or edema. SKIN: Normal; no rash; no jaundice. SPECIMEN TRANSPORTER: No focal deficits; alert and oriented times three. Assessment and Plan Plan ASSESSMENT: - Abdominal pain, this seems to be more bilateral flank pain. He c/o 4 day history of bilateral flank pain. This is aggravated by lying flat on back, movement, and not being able to fully empty his bladder. CT abdomen and pelvis with IV contrast (12/26/16)-----> 1. Moderate bilateral pleural effusions, increased in size from April 2016. 2. Mild ascites which has developed since prior examination. 3. Moderate anasarca, increased since prior examination. 4. Postoperative changes of spinal fixation with multiple prior compression deformities similar to prior exam. He reports that he had a normal EGD/ Colonoscopy in [place] about 5 years ago. The only associated GI symptom is alternating constipation and diarrhea, for which he has had for many years and swelling in abdomen. ? etiology. 12/31/16 The abdominal pain has resolved - Flank pain, difficulty urinating (states he feels like he is not emptying his bladder). Recommend post void bladder scan. - Constipation with alternating diarrhea. Long hx. States he is constipated and when he finally moves his bowels, he will have several loose stools. - Acute on chronic kidney injury. It appears his baseline is in the 2.50-2.90 range and currently running 3.30. Dr. Castillo consulted. - Ascites. Small amount on CT. - Atrial Fibrillation with RVR. Rate now 117. Coreg, Cardizem. Eliquis. Cardiology consulted. - Pleural effusions. per primary - HTN, DM, Chronic pain per primary PLAN: - Heart healthy diet as tolerated - Miralax 17 gram po daily - Supportive care -No further recommendations from the GI service We will sign off Jason Rodríguez MD Dec 31, 2016 22:48
[2017-01-01 03:45] VITALS: BP 127/86; PULSE 75; RESP 16; TEMP 97.5; O2SAT 98
[2017-01-01] MEDS: ACETAMINOPHEN/HYDROcodone 325 MG/10 MG TAB PO PRN (05:01)
[2017-01-01] MEDS: ONDANSETRON HCL 4 MG/2 ML VIAL IVP PRN (05:09)
[2017-01-01] MEDS: INSULIN ASPART SUPPLEMENTAL SCALE SQ SCH ×2 (06:31→12:07)
[2017-01-01 06:48] LABS: AUTOMATED NEUTROPHIL # 3.4 TH/MM3 (1.8-7.7); BASOPHIL % 0.1 % (0.0-2.0); HEMATOCRIT 29.9 % (39.0-51.0); LYMPH % 8.3 % (9.0-44.0); LYMPHOCYTE # 0.3 TH/MM3 (1.0-4.8); MEAN CORPUSCULAR HEMOGLOBIN 29.8 PG (27.0-34.0); MEAN CORPUSCULAR HGB CONC 33.5 % (32.0-36.0); NEUT % 89.6 % (16.0-70.0); PLATELET COUNT 86 TH/MM3 (150-450); RED BLOOD COUNT 3.36 MIL/MM3 (4.50-5.90); RED CELL DISTRIBUTION WIDTH 13.9 % (11.6-17.2); WHITE BLOOD COUNT 3.8 TH/MM3 (4.0-11.0)
[2017-01-01 06:52] LABS: HEMO FLAGS AUTO DIFF
[2017-01-01 07:15] LABS: BICARBONATE 18.6 MEQ/L (21.0-32.0); POTASSIUM 4.4 MEQ/L (3.5-5.1)
--- NOTE | 2017-01-01 08:13 | MR ---
cc: MERLIN BOONE DATE 12/29/2016 DATE OF SURGERY 12/29/2016 PROCEDURE PERFORMED Right thoracentesis PREOPERATIVE DIAGNOSIS Right pleural effusion ANESTHESIA 1% Xylocaine SURGEON Dr. Declan Boone PROCEDURE AND FINDINGS The patient's right posterior back was prepped with chlorhexidine solution following which sterile drapes were applied, 1% Xylocaine was the injected in the intercostal space in the posterior axillary line after which a small incision made with a scalpel blade. Following this, a 14-gauge catheter was inserted into the pleural space. It was connected to a vacuum bottle and approximately 275 cc of serosanguineous fluid was aspirated at which time the flow stopped. The patient tolerated the procedure well. MD JOSSELIN Mcallister/SAVANAH /4:08 PM /7:57 AM
[2017-01-01] MEDS: POLYETHYLENE GLYCOL 17 GM PKG PO SCH (08:46)
[2017-01-01] MEDS: CARVEDILOL 12.5 MG TAB PO SCH (08:46)
[2017-01-01] MEDS: HYDROCHLOROTHIAZIDE 25 MG TAB PO SCH (08:46)
[2017-01-01] MEDS: APIXABAN 2.5 MG TABLET PO SCH (08:46)
[2017-01-01] MEDS: methylPREDNISolone SOD SUCC 40 MG/1 ML VIAL IV SCH (08:47)
[2017-01-01] MEDS: MORPHINE SULFATE 15 MG CONTROLLED RELEASE TAB PO SCH (08:47)
[2017-01-01] MEDS: LISINOPRIL 20 MG TAB PO SCH (08:47)
[2017-01-01] MEDS: DOCUSATE SODIUM 100 MG CAP PO SCH (08:47)
[2017-01-01] MEDS: FUROSEMIDE 20 MG/2 ML VIAL IV PUSH SCH (08:47)
[2017-01-01] MEDS: SODIUM CHLORIDE 0.9% FLUSH 10 ML FLUSH IV FLUSH SCH (08:47)
[2017-01-01 09:01] LABS: OVALOCYTES 1+ (NORMAL); PLATELET ESTIMATE SMEAR LOW (NORMAL); PLATELET MORPHOLOGY NORMAL (NORMAL); SCAN/DIFF AUTO DIFF CONFIRMED
[2017-01-01 09:58] VITALS: O2SAT 96
--- NOTE | 2017-01-01 10:21 | HHI.DCPOC ---
Discharge Care Plan Diagnosis: (1) Atrial fibrillation with rapid ventricular response (2) Hypertension (3) Acute kidney injury superimposed on CKD (4) Edema (5) Insulin dependent diabetes mellitus Your Health Problems Are: Swelling Fluctuating Blood Sugars Goals to Promote Your Health * To prevent worsening of your condition and complications * To maintain your health at the optimal level Directions to Meet Your Goals Take your medications as prescribed Follow your dietary instruction Follow activity as directed Keep your appointments as scheduled Take your immunizations and boosters as scheduled If your symptoms worsen call your PCP, if no PCP go to Urgent Care Center or Emergency Room Smoking is Dangerous to Your Health. Avoid second hand smoke Call the 24-hour hour crisis hotline for domestic abuse at Vanesa Foss Jan 01, 2017 10:21
--- NOTE | 2017-01-01 10:22 | HHI.FF ---
Face to Face Verification Diagnosis: (1) Acute kidney injury superimposed on CKD (2) Atrial fibrillation with rapid ventricular response (3) Bilateral pleural effusion (4) Hypertension (5) Edema (6) Insulin dependent diabetes mellitus Physical Therapy Order: Evaluate and Treat, Improve ambulation, Strength and gait training Occupational Therapy Order: Evaluate and Treat, Gross motor coordination, Fine motor coordination Home Health Nursing Order: Medical education Signs/symptoms of disease process Diabetic education CHF education Medication education-adverse effect Epic Kaleidoscope Analyst Order: To Evaluate: Living conditions/environment, Support services I have seen patient [employer] on 01/01/17. My clinical findings support the need for the requested home health care services because: Ltd mobility - disease progression Deconditioned w/ increased weakness Med compliance is questionable Limited ability to care for self Need for psychosocial assistance High risk of falls I certify that my clinical findings support that this patient is homebound because: Unsteady gait/balance Unsafe to leave home unassisted Need for psychosocial assistance Vanesa Foss Jan 01, 2017 10:22
[2017-01-01] MEDS ORDERED: POLY17S PO (10:48)
[2017-01-01] MEDS ORDERED: TRAZ50TA12 PO (10:48)
[2017-01-01] MEDS ORDERED: PRED10 PO (10:48)
[2017-01-01] MEDS ORDERED: APIX2.5T PO (10:48)
[2017-01-01] MEDS ORDERED: CARV12.5 PO (10:48)
[2017-01-01] MEDS ORDERED: PRED5TAB PO (10:48)
[2017-01-01] MEDS ORDERED: HYDR25TA5 PO (10:48)
[2017-01-01] MEDS ORDERED: PRED20 PO (10:48)
[2017-01-01] MEDS ORDERED: DRIS50002 PO (10:48)
[2017-01-01] MEDS ORDERED: LISI-515 PO (10:48)
[2017-01-01] MEDS ORDERED: LEVEMIR SQ (10:48)
[2017-01-01] MEDS ORDERED: AMLO10 PO (10:48)
[2017-01-01] MEDS ORDERED: FURO1TAB62 PO (10:48)
--- NOTE | 2017-01-01 10:52 | HHI.DS ---
Discharge Summary Admission Date Dec 26, 2016 at 21:14 Admitting Diagnosis anasarca, atrial fibrillation with RVR, urinary tract infection, sep Procedures Thoracentesis done Brief History The patient is a 61-year-old male patient followed by Dr. Davila He presented to the ED because of abdominal pain, swelling, and shortness of breath for 4 days. He was unable to stand up. He also reports that he ran out of his medication. The patient has a history of anemia, hypertension, insulin dependent diabetes, seizure disorder, and renal insufficiency. He also has chronic pain and is seen by a pain clinic with a history of steel joyce in back from osteomyelitis. He is found to be in AFIB RVR he denied that he has a history of AFIB. His chest Xray also shows bilateral pleural effusion R>L and probable loculated on Right. His CT of abdomen showed moderate anasarca and mild ascites. He is also found to elevated BUN and creatinine with a GFR 19. His UA appears to positive for UTI and he was started on Cipro culture pending. Per patient not followed by any strip picker, slubber frame changer, or school library media program director. He states he has not had any alcohol drink and 2 years, he used to be an alcoholic. He continues to smoke one third pack a day. He denies any cough or chest pain. The only medication he took yesterday was his pain pill. CBC/BMP: 01/01/17 0549 01/01/17 0549 Significant Findings Laboratory Tests Test 12/29/16 12/29/16 12/30/16 12/31/16 11:17 14:00 05:06 06:10 Red Blood Count 3.17 MIL/MM3 3.27 MIL/MM3 3.26 MIL/MM3 (4.50-5.90) (4.50-5.90) (4.50-5.90) Hemoglobin 9.2 GM/DL 9.5 GM/DL 9.4 GM/DL (13.0-17.0) (13.0-17.0) (13.0-17.0) Hematocrit 29.1 % 29.5 % 29.7 % (39.0-51.0) (39.0-51.0) (39.0-51.0) Mean Corpuscular Hemoglobin 31.8 % 31.7 % Concent (32.0-36.0) (32.0-36.0) Platelet Count 85 TH/MM3 89 TH/MM3 82 TH/MM3 (150-450) (150-450) (150-450) Neutrophils (%) (Auto) 90.1 % 89.3 % 91.2 % (16.0-70.0) (16.0-70.0) (16.0-70.0) Lymphocytes (%) (Auto) 6.8 % 8.4 % 6.2 % (9.0-44.0) (9.0-44.0) (9.0-44.0) Lymphocytes # (Auto) 0.4 TH/MM3 0.3 TH/MM3 0.3 TH/MM3 (1.0-4.8) (1.0-4.8) (1.0-4.8) Platelet Estimate LOW (NORMAL) LOW (NORMAL) Sodium Level 134 MEQ/L 135 MEQ/L (136-145) (136-145) Carbon Dioxide Level 18.3 MEQ/L 20.4 MEQ/L 18.5 MEQ/L (21.0-32.0) (21.0-32.0) (21.0-32.0) Blood Urea Nitrogen 71 MG/DL (7-18) 79 MG/DL (7-18) 97 MG/DL (7-18) Creatinine 3.52 MG/DL 3.58 MG/DL 3.84 MG/DL (0.60-1.30) (0.60-1.30) (0.60-1.30) Estimat Glomerular Filtration 18 ML/MIN (>89) 18 ML/MIN (>89) 16 ML/MIN (>89) Rate Random Glucose 163 MG/DL 162 MG/DL 237 MG/DL (74-106) (74-106) (74-106) Calcium Level 8.2 MG/DL 8.3 MG/DL 8.0 MG/DL (8.5-10.1) (8.5-10.1) (8.5-10.1) Pleural Fluid WBC 144 /MM3 (0-10) Pleural Fluid RBC 25 /MM3 (0-0) Ovalocytes 1+ (NORMAL) Test 01/01/17 05:49 White Blood Count 3.8 TH/MM3 (4.0-11.0) Red Blood Count 3.36 MIL/MM3 (4.50-5.90) Hemoglobin 10.0 GM/DL (13.0-17.0) Hematocrit 29.9 % (39.0-51.0) Platelet Count 86 TH/MM3 (150-450) Neutrophils (%) (Auto) 89.6 % (16.0-70.0) Lymphocytes (%) (Auto) 8.3 % (9.0-44.0) Lymphocytes # (Auto) 0.3 TH/MM3 (1.0-4.8) Platelet Estimate LOW (NORMAL) Ovalocytes 1+ (NORMAL) Sodium Level 135 MEQ/L (136-145) Carbon Dioxide Level 18.6 MEQ/L (21.0-32.0) Blood Urea Nitrogen 110 MG/DL (7-18) Creatinine 3.90 MG/DL (0.60-1.30) Estimat Glomerular Filtration 16 ML/MIN (>89) Rate Random Glucose 185 MG/DL (74-106) Calcium Level 8.2 MG/DL (8.5-10.1) Imaging Last 72 hours Impressions Renal Ultrasound 12/30/16 0000 Signed Impressions: Service Date/Time: Friday, December 30, 2016 11:07 - CONCLUSION: 1. Small amount of abdominal ascites. 2. Increased cortical echogenicity of the kidneys bilaterally suggesting some degree of medical renal disease. 3. Asymmetry of the kidney sizes with the right larger than the left. This could represent some vascular compromise to the left kidney. Derrick Block MD PE at Discharge GENERAL: Alert and cooperative SKIN: Warm and dry. HEAD: Normocephalic. EYES: No scleral icterus. No injection or drainage. NECK: Supple, trachea midline. No JVD or lymphadenopathy. CARDIOVASCULAR: Regular rate and rhythm without murmurs, gallops, or rubs. RESPIRATORY: Breath sounds equal bilaterally. No accessory muscle use. GASTROINTESTINAL: Abdomen soft, non-tender, nondistended. MUSCULOSKELETAL: No cyanosis, or edema. BACK: Nontender without obvious deformity. No CVA tenderness. Hospital Course The patient is a 61-year-old male patient followed by Dr. Davila He presented to the ED because of abdominal pain, swelling, and shortness of breath for 4 days. He was unable to stand up. He also reports that he ran out of his medication. The patient has a history of anemia, hypertension, insulin dependent diabetes, seizure disorder, and renal insufficiency. He also has chronic pain and is seen by a pain clinic with a history of steel joyce in back from osteomyelitis. He is found to be in AFIB RVR he denied that he has a history of AFIB. His chest Xray also shows bilateral pleural effusion R>L and probable loculated on Right. His CT of abdomen showed moderate anasarca and mild ascites. He is also found to elevated BUN and creatinine with a GFR 19. His UA appears to positive for UTI and he was started on Cipro culture pending. Per patient not followed by any strip picker, slubber frame changer, or school library media program director. He states he has not had any alcohol drink and 2 years, he used to be an alcoholic. He continues to smoke one third pack a day. He denies any cough or chest pain. Patient was followed by nephrology during his stay and has stage 4 chronic kidney disease most liikely has diabetic nephropathy. He also a a smaller left kidney psssible from renovascular disease. He was give lasix during his hospitilization which he tolerated and helped with edema. He was also seen by GI and a hepatitis panel is pending. He was also followed by cardiology. AF rate controlled. Echo w moderate LV systolic dysfunction. Continue carvedilol, stay off diltiazem. Anticoagulation with Eliquis. Patient does not want to go to rehab even thought we encouraged him to. He will be discharged home with [facility] Pt Condition on Discharge: Fair Discharge Disposition: Disch w/ Home Health Serv Discharge Instructions DIET: Follow Instructions for: Diabetic Diet, Renal Failure Diet Activities you can perform: Regular-No Restrictions New Medications: Furosemide (Lasix) 20 Mg Tab 20 MG PO BID Broncospasm #60 Ref 0 TAB Prednisone (Prednisone) 5 Mg Tab 5 MG PO DAILY Broncospasm Days 5 Ref 0 TAB Prednisone (Prednisone) 10 Mg Tab 10 MG PO DAILY Broncospasm Days 5 Ref 0 TAB Prednisone (Prednisone) 20 Mg Tab 20 MG PO DAILY Broncospasm Days 5 Ref 0 TAB Prednisone (Prednisone) 20 Mg Tab 40 MG PO DAILY Take 40 mg (2 tablets) daily for 5 days Broncospasm Days 5 Ref 0 TAB Amlodipine (Norvasc) 10 Mg Tab 10 MG PO DAILY Blood Pressure Management #30 TAB Apixaban (Eliquis) 2.5 Mg Tab 2.5 MG PO BID Blood Clot Prevention #60 TAB Carvedilol (Coreg) 12.5 Mg Tab 25 MG PO Q12HR Blood Pressure Management #60 TAB Polyethylene Glycol 3350 Powder (Polyethylene Glycol 3350 Powder) 17 Gm Pow 17 GM PO DAILY Constipation #30 BOTTLE Continued Medications: Ergocalciferol (Drisdol) 50,000 Unit Cap 54165 UNITS PO Q7D ON FRIDAYS Nutritional Supplement #30 Ref 0 CAP (This prescription has been renewed) Hydrochlorothiazide (Hydrochlorothiazide) 25 Mg Tab 25 MG PO DAILY Blood Pressure Management Days 30 Ref 0 TAB (This prescription has been renewed) Insulin Detemir Inj (Levemir Inj) 1,000 unit/ 10 ML Vial 10 UNITS SQ HS Do not mix with any other Insulin. Blood Sugar Management Days 30 Ref 0 VIAL (This prescription has been renewed) Lisinopril (Lisinopril) 20 Mg Tab 20 MG PO DAILY #30 Ref 0 TAB (This prescription has been renewed) Trazodone (Trazodone) 50 Mg Tab 50 MG PO HS PRN SLEEP #30 Ref 0 TAB (This prescription has been renewed) Discontinued Medications: Amlodipine (Amlodipine) 5 Mg Tab 5 MG PO DAILY Blood Pressure Management #30 Ref 0 TAB Carvedilol (Carvedilol) 12.5 Mg Tab 12.5 MG PO Q12HR #60 Ref 0 TAB Clonidine (Clonidine) 0.1 Mg Tab 0.1 MG PO Q6HR PRN SBP>160, DBP>90 #60 Ref 0 TAB Furosemide (Furosemide) 40 Mg Tab 40 MG PO BID EDEMA #60 Ref 0 TAB Hydrocodone-Acetaminophen (Lortab) 10-325 Mg Tab 1 TAB PO Q6H PRN PAIN Ref 0 TAB Morphine IR (Morphine IR) 15 Mg Tab 15 MG PO Q4H Pain Management Ref 0 TAB Ondansetron (Zofran) 4 Mg Tab 4 MG PO Q6HR PRN NAUSEA OR VOMITING Ref 0 TAB Additional Information Follow up appt with Dr. Davila on at 12:00 Please make follow up appts with Dr. Arthur, Dr. Katie Hidalgo, and Dr. Castillo Will also need to follow up with pain clinic. Tylenol # 4 called to pharmacy. Vanesa Foss Jan 01, 2017 10:52
--- NOTE | 2017-01-01 12:08 | HHI.NPPN ---
Subjective History of Present Illness 61-year-old male with a past medical history of hypertension, diabetes mellitus, history of chronic kidney disease, chronic back pain, history of osteomyelitis, came to the hospital with complaint of generalized edema, dysuria and rapid ventricular rate. I was called to see the patient because of elevated BUN and creatinine. The patient has a known history of chronic kidney disease. When he was here last year in April he had a creatinine of 2.7-2.96 and now he came with a creatinine of 3.3. The patient has this kidney disease going on for some time and according to him he has never seen any senior designer/art director before, but looking back seems like he was seen by Dr. Spencer when was here in April last year but he has not been following with a senior designer/art director. Additional Remarks Patient is alert, no SOB, clinically same. Review of Systems General Constitutional: Fatigue Objective Data Data 12/31/16 01/01/17 19:00 07:00 Intake Total 480 ml 240 ml Output Total 950 ml 975 ml Balance -470 ml -735 ml Intake Oral 480 ml 240 ml Output Urine Total 950 ml 975 ml # Bowel Movements 0 1 Vital Signs Date Time Temp Pulse Resp B/P Pulse Ox O2 Delivery O2 Flow Rate FiO2 01/01/17 10:10 Room Air 01/01/17 09:58 96 21 01/01/17 03:45 97.5 75 16 127/86 98 12/31/16 23:00 97.9 89 16 130/89 98 12/31/16 20:25 95.8 88 16 117/76 97 12/31/16 20:15 Room Air 12/31/16 16:00 96.7 82 18 121/76 97 -: 01/01/17 0549 01/01/17 0549 Physical Exam General Appearance: Well Developed, No Acute Distress, Comfortable Eyes Eye Exam: Pupils Equal Neck Neck Exam: Neck Supple Pulmonary Resp Exam: Breath Sounds Equal, No Distress, Rhonchi, Decreased Bases Cardiology CV Exam: Arrhythmia Gastrointestinal/Abdomen GI Exam: Soft, Non-Tender Extremeties Extremities Exam: Moderate Edema, Pitting Edema Neurologic Neuro Exam: Alert, Awake, Oriented Psychiatric Psych Exam: Appropriate Responses Assessment/Plan Assessment Summary: CKD Stage IV Problem List: (1) Acute kidney injury superimposed on CKD Plan: Patient has stage 4 chronic kidney disease. Most likely has Diabetic nephropathy. Has smaller left kidney, possibly also has renovascular disease. s/p thoracentesis Continue Lasix, edema is improving. Creatinine is now 3.9, he has advance stage 4 chronic kidney disease. To continue salt and fluid restriction. Continue Lasix. For D/C, to follow with me in 2-3 weeks. (2) Atrial fibrillation with rapid ventricular response Plan: cardiology following (3) Bilateral pleural effusion (4) Hypertension Problem Qualifiers (1) Hypertension: Qualified Code: I10 - Essential hypertension Harris Castillo MD Jan 01, 2017 12:08
--- NOTE | 2017-01-01 12:50 | HHI.PR ---
Subjective Remarks He is feeling OK.. Off O2 sat 93 CXR was better after thoracentesis Objective Vital Signs Date Time Temp Pulse Resp B/P Pulse Ox O2 Delivery O2 Flow Rate FiO2 01/01/17 10:10 Room Air 01/01/17 09:58 96 21 01/01/17 03:45 97.5 75 16 127/86 98 12/31/16 23:00 97.9 89 16 130/89 98 12/31/16 20:25 95.8 88 16 117/76 97 12/31/16 20:15 Room Air 12/31/16 16:00 96.7 82 18 121/76 97 I/O 12/31/16 12/31/16 12/31/16 01/01/17 01/01/17 01/01/17 07:00 15:00 23:00 07:00 15:00 23:00 Intake Total 480 ml 240 ml 0 ml Output Total 950 ml 550 ml 425 ml Balance -470 ml -310 ml -425 ml Intake Oral 480 ml 240 ml 0 ml Output Urine Total 950 ml 550 ml 425 ml # Bowel Movements 2 0 1 0 Result Diagram: 01/01/17 0549 01/01/17 0549 Procedures Thoracentesis done Objective Remarks IN GENERAL: This averagely built middle-aged white male who is alert and pale,not dyspneic at rest. HEAD, EYES, EARS, NOSE, AND THROAT: Head normocephalic. Pupils reactive. Sclerae are clear Tongue is moist. Throat was clear. NECK: The neck is supple. No bruits or thyroid enlargement. CHEST: Distant breath sounds at bases and prolonged expiration. HEART: The heart sounds irregular S1-S2. No murmur. ABDOMEN: Soft, benign. No masses or organomegaly. EXTREMITIES: Mild varicosities 1+ edema with diminished pulses. Reflexes 1+ with no gross motor deficits. NEUROLOGIC: Cranial nerves grossly intact. RECTUM: Rectal exam is deferred. SKIN: No lesion. Assessment and Plan Assessment and Plan IMPRESSION 1. Atrial fibrillation with rapid ventricular response. 2. Bilateral pleural effusions, more on the right. 3. Diabetes mellitus type 2 4. Hypertension 5. UTI 6. Chronic kidney disease 7. Ascites and abdominal pains. Plan 1. Wean off O2 2. Home today 3. D/C Nebs , and use ventolin , 2 puffs tid prn 4. Cont Antibiotics for 3 days 5. Cont Diuretics PO . 6. IS at bedside q3h. 7. Will F/u in 3 weeks Faith Boone MD Jan 01, 2017 12:50
--- NOTE | 2017-01-01 13:12 | PD.CARD.PN ---
Subjective Subjective Remarks No CP or SOB, edema slowly improving Objective Medications Current Medications Medications (Trade) Dose Ordered Sig/Jah Route Start Time Stop Time Status Last Admin (Catapres) 0.1 mg Q6H PRN PO 12/26/16 22:00 (Hydrodiuril) 25 mg DAILY PO 12/27/16 09:00 01/01/17 08:46 (Prinivil) 20 mg DAILY PO 12/27/16 09:00 01/01/17 08:47 (Desyrel) 50 mg HS PRN PO 12/26/16 22:00 12/29/16 21:33 (NS Flush) 2 ml UNSCH PRN IV FLUSH 12/26/16 22:00 12/31/16 17:34 (NS Flush) 2 ml BID IV FLUSH 12/27/16 09:00 01/01/17 08:47 (Tylenol) 650 mg Q4H PRN PO 12/26/16 22:00 (Zofran Inj) 4 mg Q6H PRN IVP 12/26/16 22:00 01/01/17 05:09 (Dulcolax Supp) 10 mg DAILY PRN MI 12/26/16 22:00 (Colace) 100 mg Q12H PO 12/26/16 22:00 01/01/17 08:47 (Milk Of Magnesia Liq) 30 ml Q12H PRN PO 12/26/16 22:00 (Senokot) 17.2 mg Q12H PRN PO 12/26/16 22:00 (Narcan Inj) 0.4 mg UNSCH PRN IV 12/26/16 22:00 (D50w (Vial) Inj) 25 ml UNSCH PRN IV PUSH 12/27/16 08:30 (Glucagon Inj) 1 mg UNSCH PRN OTHER 12/27/16 08:30 (Commodore 10-325 Mg) 1 tab Q4H PRN PO 12/27/16 14:00 01/01/17 05:01 (Miralax) 17 gm DAILY PO 12/27/16 11:30 01/01/17 08:46 (Lasix Inj) 20 mg BID@09,18 IV PUSH 12/28/16 09:00 01/01/17 08:47 (Coreg) 25 mg Q12HR PO 12/28/16 21:00 01/01/17 08:46 (SoluMEDROL INJ) 40 mg BID IV 12/29/16 09:00 01/01/17 08:47 (Norvasc) 10 mg DAILY PO 12/29/16 12:00 01/01/17 08:47 (Levemir Inj) 10 units HS SQ 12/29/16 21:00 12/31/16 21:25 (Oramorph Sr) 15 mg Q12HR PO 12/29/16 14:00 01/01/17 08:47 (Eliquis) 2.5 mg BID PO 12/30/16 21:00 01/01/17 08:46 Vital Signs / I&O Vital Signs Date Time Temp Pulse Resp B/P Pulse Ox O2 Delivery O2 Flow Rate FiO2 01/01/17 10:10 Room Air 01/01/17 09:58 96 21 01/01/17 03:45 97.5 75 16 127/86 98 12/31/16 23:00 97.9 89 16 130/89 98 12/31/16 20:25 95.8 88 16 117/76 97 12/31/16 20:15 Room Air 12/31/16 16:00 96.7 82 18 121/76 97 I/O 12/31/16 12/31/16 12/31/16 01/01/17 01/01/17 01/01/17 07:00 15:00 23:00 07:00 15:00 23:00 Intake Total 480 ml 240 ml 0 ml Output Total 950 ml 550 ml 425 ml Balance -470 ml -310 ml -425 ml Intake Oral 480 ml 240 ml 0 ml Output Urine Total 950 ml 550 ml 425 ml # Bowel Movements 2 0 1 0 Physical Exam GENERAL: In NAD SKIN: Warm and dry. HEAD: Normocephalic. EYES: No scleral icterus. No injection or drainage. NECK: Supple, trachea midline. No JVD or lymphadenopathy. CARDIOVASCULAR: Irregular rate and rhythm without murmurs, gallops, or rubs. RESPIRATORY: Breath sounds equal bilaterally. No accessory muscle use. GASTROINTESTINAL: Abdomen soft, non-tender, nondistended. MUSCULOSKELETAL: No cyanosis, bilat LE edema improving. Laboratory Laboratory Tests Test 01/01/17 05:49 White Blood Count 3.8 TH/MM3 Red Blood Count 3.36 MIL/MM3 Hemoglobin 10.0 GM/DL Hematocrit 29.9 % Mean Corpuscular Volume 89.0 FL Mean Corpuscular Hemoglobin 29.8 PG Mean Corpuscular Hemoglobin 33.5 % Concent Red Cell Distribution Width 13.9 % Platelet Count 86 TH/MM3 Mean Platelet Volume 10.9 FL Neutrophils (%) (Auto) 89.6 % Lymphocytes (%) (Auto) 8.3 % Monocytes (%) (Auto) 2.0 % Eosinophils (%) (Auto) 0.0 % Basophils (%) (Auto) 0.1 % Neutrophils # (Auto) 3.4 TH/MM3 Lymphocytes # (Auto) 0.3 TH/MM3 Monocytes # (Auto) 0.1 TH/MM3 Eosinophils # (Auto) 0.0 TH/MM3 Basophils # (Auto) 0.0 TH/MM3 CBC Comment AUTO DIFF Differential Comment AUTO DIFF CONFIRMED Platelet Estimate LOW Platelet Morphology Comment NORMAL Ovalocytes 1+ Sodium Level 135 MEQ/L Potassium Level 4.4 MEQ/L Chloride Level 103 MEQ/L Carbon Dioxide Level 18.6 MEQ/L Anion Gap 13 MEQ/L Blood Urea Nitrogen 110 MG/DL Creatinine 3.90 MG/DL Estimat Glomerular Filtration 16 ML/MIN Rate Random Glucose 185 MG/DL Calcium Level 8.2 MG/DL Imaging Last Impressions Renal Ultrasound 12/30/16 0000 Signed Impressions: Service Date/Time: Friday, December 30, 2016 11:07 - CONCLUSION: 1. Small amount of abdominal ascites. 2. Increased cortical echogenicity of the kidneys bilaterally suggesting some degree of medical renal disease. 3. Asymmetry of the kidney sizes with the right larger than the left. This could represent some vascular compromise to the left kidney. Derrick Block MD Chest X-Ray 12/29/16 0000 Signed Impressions: Service Date/Time: Thursday, December 29, 2016 16:20 - CONCLUSION: 1. Compared with December 26 there is improved right-sided basilar airspace disease and slight worsening of left basilar opacity. No pneumothorax. Rafael Holman MD Chest Ultrasound 12/27/16 0000 Signed Impressions: Service Date/Time: Tuesday, December 27, 2016 22:50 - CONCLUSION: Large right pleural effusion. Chaka Santoyo Jr., MD Abdomen/Pelvis CT 12/26/16 192 Signed Impressions: Service Date/Time: December 19:39 - CONCLUSION: 1. Moderate bilateral pleural effusions, increased in size from April 2016. 2. Mild ascites which has developed since prior examination. 3. Moderate anasarca, increased since prior examination. 4. Postoperative changes of spinal fixation with multiple prior compression deformities similar to prior exam. Rafael Holman MD Assessment and Plan Problem List: (1) Atrial fibrillation with rapid ventricular response (2) Edema (3) Bilateral pleural effusion (4) Hypertension (5) Insulin dependent diabetes mellitus (6) Acute kidney injury superimposed on CKD (7) Cardiomyopathy (8) CHF (congestive heart failure) Assessment and Plan AF rate well controlled. Echo w moderate LV systolic dysfunction. Continue carvedilol, stay off diltiazem. Anticoagulation with Eliquis. Titrate BP control as needed. Still fluid overloaded, continue diuresis closely monitoring renal fx. Nephrology evaluation. Pulmonary evaluation in progress, had thoracentesis. Increase activity. Will schedule outpatient cardiology f/u after discharge. Problem Qualifiers (1) Hypertension: Qualified Code: I10 - Essential hypertension Kamar Arthur MD Jan 01, 2017 13:12
[2017-01-02 09:53] LABS: HCV RNA PCR LOGIU/ML 6.48 (())
== END 2017-01-01 16:30 | disposition home health service (06) | DRG 187 ==
LOC: NEDAMB 16:15 → NEDA 21:14 → NEDH 12-27 01:41 → N04A 12-27 13:43
PROVIDERS: ADMIT Family Medicine; ATTEND Family Medicine
PROC: 0W993ZZ Drainage of Right Pleural Cavity, Percutaneous Approach (ICD-10-PCS; principal; 2016-12-29)
DX: J90 Pleural effusion, not elsewhere classified (principal); N39.0 Urinary tract infection, site not specified; R18.8 Other ascites; N18.4 Chronic kidney disease, stage 4 (severe); I42.9 Cardiomyopathy, unspecified; E11.21 Type 2 diabetes mellitus with diabetic nephropathy; N17.9 Acute kidney failure, unspecified; I48.91 Unspecified atrial fibrillation; G40.909 Epilepsy, unspecified, not intractable, without status epilepticus; I12.9 Hypertensive chronic kidney disease with stage 1 through stage 4 chronic kidney disease, or unspecified chronic kidney disease; J44.9 Chronic obstructive pulmonary disease, unspecified; E87.70 Fluid overload, unspecified; Z91.14 Patient's other noncompliance with medication regimen; Z91.19 Patient's noncompliance with other medical treatment and regimen; F17.210 Nicotine dependence, cigarettes, uncomplicated; Z79.4 Long term (current) use of insulin; Z88.0 Allergy status to penicillin; G89.29 Other chronic pain; B19.20 Unspecified viral hepatitis C without hepatic coma; M54.9 Dorsalgia, unspecified; E11.22 Type 2 diabetes mellitus with diabetic chronic kidney disease; Z99.3 Dependence on wheelchair; D64.9 Anemia, unspecified; R11.0 Nausea; R30.0 Dysuria; F10.21 Alcohol dependence, in remission; K59.00 Constipation, unspecified
CPT/HCPCS: 32554; 36600; 71010; 71020; 74176; 76604; 76775; 80048; 80053; 81001; 82150; 82805; 82945; 82948; 83605; 83615; 83690; 83735; 83880; 83986; 84157; 84484; 85025; 85610; 85730; 87015; 87040; 87070; 87086; 87102; 87116; 87205; 87206; 87522; 87902; 88112; 88305; 89051; 93005; 93306; 94640; 94664; 96374; 96375; J0744; J1650; J1815; J1940; J2405; J2920; J2930